=== PATIENT | female | born 1945 | race Caucasian/White ===

== ENCOUNTER → 2019-02-25 | Outpatient (CLI) | payer OTHER, MEDICARE ==
--- NOTE | 2019-02-25 14:26 | KCIC ---
EXAM: Renal sonogram. HISTORY: Renal insufficiency. TECHNIQUE: Sonographic imaging of the kidneys and bladder was performed. COMPARISON: None. FINDINGS: The kidneys are normal in size. No solid or cystic renal lesion is seen. There is no hydronephrosis. The inferior vena cava is patent. The aorta is obscured due to bowel gas. The bladder is empty, limiting evaluation of the ureteral jets. IMPRESSION: Sonographically unremarkable kidneys. Electronically signed by: Chante Galeana MD (02/25/2019 2:23 PM) [facility]
== END | disposition home or self-care (01) ==
LOC: KCIC US 12:41
PROVIDERS: ATTEND Internal Medicine Nephrology
DX: N18.9 Chronic kidney disease, unspecified (principal)
CPT/HCPCS: 76770

== ENCOUNTER 2019-12-12 19:26 | Inpatient (IN) | payer MEDICARE, OTHER ==
[~2019-12-12] VITALS: Ht 165.1 cm; Wt 75.7 kg
[2019-12-12 19:56] LABS: BASO # 0.1 x10^3/uL (0.0-0.2); BASO % 1 % (0-3); EOS # 0.1 x10^3/uL (0.0-0.7); EOS % 1 % (0-3); HEMATOCRIT 35.9 % (36.0-47.0); HEMOGLOBIN 11.5 g/dL (12.0-15.5); LYMPH # 1.8 x10^3/uL (1.0-4.8); LYMPH % 17 % (24-48); MEAN CORPUSCULAR HEMOGLOBIN 22 pg (25-35); MEAN CORPUSCULAR HGB CONC 32 g/dL (31-37); MEAN CORPUSCULAR VOLUME 69 fL (79-100); MONO # 0.8 x10^3/uL (0.0-1.1); MONO % 8 % (0-9); NEUT # 7.9 x10^3/uL (1.8-7.7); NEUT % 74 % (31-73); PLATELET COUNT 266 x10^3/uL (140-400); RED BLOOD COUNT 5.18 x10^6/uL (3.50-5.40); RED CELL DISTRIBUTION WIDTH 15.8 % (11.5-14.5); WHITE BLOOD COUNT 10.7 x10^3/uL (4.0-11.0)
[2019-12-12 20:05] LABS: CALCIUM 8.4 mg/dL (8.5-10.1); CREATININE 1.3 mg/dL (0.6-1.0); GFR 40.3; POTASSIUM 4.5 mmol/L (3.5-5.1); PROTHROMBIN TIME PATIENT 12.3 SEC (11.7-14.0)
[2019-12-12 20:11] LABS: DIRECT BILIRUBIN 0.2 mg/dL (0.0-0.2); TOTAL BILIRUBIN 0.5 mg/dL (0.2-1.0); TOTAL PROTEIN 6.3 g/dL (6.4-8.2)
[2019-12-12 20:24] LABS: ANISOCYTOSIS SLIGHT; HYPOCHROMIA MOD; MICROCYTOSIS MOD; OVALOCYTES FEW; PLT ESTIMATE ADEQUATE (ADEQUATE); POIKILOCYTOSIS SLIGHT
--- NOTE | 2019-12-12 20:25 | PHYS DOC ---
Past Medical History Past Medical History: Anxiety, Depression, Hypothyroid, Other Additional Past Medical Histor: PLEURISY Past Surgical History: Coronary Bypass Surgery Additional Past Surgical Histo: THYROIDECTOMY, BILATERA HAND SURGERY, BACK SURGERY, TENS UNIT IN LOWER BACK Smoking Status: Current Every Day Smoker Alcohol Use: Rarely General Adult EDM: Chief Complaint: CHEST PAIN HPI: HPI: 74-year-old female presents emergency department with chest pain that started ar ound 1400. Its a sharp shooting pain that radiates to the right side. It goes into her shoulder. It is about 8 out of 10. She has a history of heart disease and reports having open heart surgery before. She denies nausea or diaphoresis. She denies abdominal pain or headache. She came in by EMS. Review of systems negative for nausea vomiting fevers chills. Positive for chest pain. Negative for abdominal pain. All other review of systems negative. ED course: 74-year-old female presenting with chest pain. EKG obtained and reviewed by myself shows sinus rhythm with a regular rate. ST segments congruent. Not suggestive of acute ischemia. Chest x-ray and blood work ordered. Work-up here is unremarkable. Given the patient's history will admit the patient for chest pain rule out and cardiology consultation. I spoke to Dr. Daily who accepts patient for admission. Heart Score: HEART Score for Chest Pain: HEART Score for Chest Pain Response (Comments) Value History Moderately Suspicious 1 ECG Nonspecific Repolarizatio 1 Age > 65 2 Risk Factors >3 Risk Factors or Hx CAD 2 Troponin < Normal Limit 0 Total 6 Risk Factors: Risk Factors: DM, Current or recent (<one month) smoker, HTN, HLP, family history of CAD, obesity. Risk Scores: Score 0 - 3: 2.5% MACE over next 6 weeks - Discharge Home Score 4 - 6: 20.3% MACE over next 6 weeks - Admit for Clinical Observation Score 7 - 10: 72.7% MACE over next 6 weeks - Early Invasive Strategies Allergies: Allergies: Allergies Coded Allergies Type Severity Reaction Last Updated Verified codeine Allergy Unknown 12/12/19 Yes Physical Exam: PE: Constitutional: Well developed, well nourished, no acute distress, non-toxic appearance. [] HENT: Normocephalic, atraumatic, bilateral external ears normal, oropharynx moist, no oral exudates, nose normal. [] Eyes: PERRLA, EOMI, conjunctiva normal, no discharge. [] Neck: Normal range of motion, no tenderness, supple, no stridor. [] Cardiovascular:Heart rate regular rhythm, no murmur [] Lungs & Thorax: Bilateral breath sounds clear to auscultation [] Abdomen: Bowel sounds normal, soft, no tenderness, no masses, no pulsatile masses. [] Skin: Warm, dry, no erythema, no rash. [] Back: No tenderness, no CVA tenderness. [] Extremities: No tenderness, no cyanosis, no clubbing, ROM intact, no edema. [] Neurologic: Alert and oriented X 3, normal motor function, normal sensory function, no focal deficits noted. [] Psychologic: Affect normal, judgement normal, mood normal. [] Current Patient Data: Labs: Laboratory Tests Test 12/12/19 19:48 White Blood Count 10.7 x10^3/uL (4.0-11.0) Red Blood Count 5.18 x10^6/uL (3.50-5.40) Hemoglobin 11.5 g/dL (12.0-15.5) L Hematocrit 35.9 % (36.0-47.0) L Mean Corpuscular Volume 69 fL (79-100) L Mean Corpuscular Hemoglobin 22 pg (25-35) L Mean Corpuscular Hemoglobin Concent 32 g/dL (31-37) Red Cell Distribution Width 15.8 % (11.5-14.5) H Platelet Count 266 x10^3/uL (140-400) Neutrophils (%) (Auto) 74 % (31-73) H Lymphocytes (%) (Auto) 17 % (24-48) L Monocytes (%) (Auto) 8 % (0-9) Eosinophils (%) (Auto) 1 % (0-3) Basophils (%) (Auto) 1 % (0-3) Neutrophils # (Auto) 7.9 x10^3/uL (1.8-7.7) H Lymphocytes # (Auto) 1.8 x10^3/uL (1.0-4.8) Monocytes # (Auto) 0.8 x10^3/uL (0.0-1.1) Eosinophils # (Auto) 0.1 x10^3/uL (0.0-0.7) Basophils # (Auto) 0.1 x10^3/uL (0.0-0.2) Platelet Estimate Pending Prothrombin Time 12.3 SEC (11.7-14.0) Prothrombin Time INR 1.0 (0.8-1.1) Activated Partial Thromboplast Time 27 SEC (24-38) Sodium Level 142 mmol/L (136-145) Potassium Level 4.5 mmol/L (3.5-5.1) Chloride Level 107 mmol/L (98-107) Carbon Dioxide Level 28 mmol/L (21-32) Anion Gap 7 (6-14) Blood Urea Nitrogen 9 mg/dL (7-20) Creatinine 1.3 mg/dL (0.6-1.0) H Estimated GFR (Cockcroft-Gault) 40.3 Glucose Level 115 mg/dL (70-99) H Calcium Level 8.4 mg/dL (8.5-10.1) L Total Bilirubin 0.5 mg/dL (0.2-1.0) Direct Bilirubin 0.2 mg/dL (0.0-0.2) Aspartate Amino Transferase (AST) 14 U/L (15-37) L Alanine Aminotransferase (ALT) 16 U/L (14-59) Alkaline Phosphatase 107 U/L (46-116) Troponin I Quantitative < 0.017 ng/mL (0.000-0.055) KD-Cww-Q-Type Natriuretic Peptide 2606 pg/mL (0-124) H Total Protein 6.3 g/dL (6.4-8.2) L Albumin 3.0 g/dL (3.4-5.0) L Lipase 61 U/L (73-393) L Laboratory Tests 12/12/19 19:48 Laboratory Tests 12/12/19 19:48 Vital Signs: Vital Signs Date Time Temp Pulse Resp B/P (MAP) Pulse Ox O2 Delivery O2 Flow Rate FiO2 12/12/19 19:27 98.5 76 24 136/62 (86) 99 Nasal Cannula 2.0 98.5 EKG: EKG: [] Radiology/Procedures: Radiology/Procedures: [] Course & Med Decision Making: Course & Med Decision Making Pertinent Labs and Imaging studies reviewed. (See chart for details) [] Dragon Disclaimer: Dragon Disclaimer: This electronic medical record was generated, in whole or in part, using a voice recognition dictation system. Departure Departure Impression: Primary Impression: Chest pain Referrals: UNKNOWN PCP NAME (PCP) Justicifation of Admission Dx: Justifications for Admission: Justification of Admission Dx: Yes Angina: Symp at Rest MAIDA MUSA MD Dec 12, 2019 20:25
--- NOTE | 2019-12-12 20:32 | RAD ---
CHEST AP ONLY Clinical History: Reason: chest pain / Spl. Instructions: / History: Technique: AP view of the chest was obtained at 12/12/2019 7:31 PM. Comparison: None. Findings: The cardiomediastinal silhouette is normal. The pulmonary vasculature is normal. The lungs and pleural margins are clear. There are median sternotomy wires. Impression: No evidence of an acute cardiopulmonary process. Electronically signed by: Yazan Maciel III, MD (12/12/2019 8:29 PM) [facility]
[2019-12-12] MEDS ORDERED: IV NORMAL SALINE 1000ML BAG 1,000 ML IV SCH (20:39)
[2019-12-12] MEDS ORDERED: MORPHINE SULFATE 2 MG/ML VIAL. ONE (21:09)
[2019-12-12] MEDS: MORPHINE SULFATE 2 MG/ML VIAL. IV PRN ×2 (21:12→22:32)
[2019-12-12] MEDS ORDERED: LEVO150T PO (21:36)
[2019-12-12] MEDS ORDERED: ESCI20TA2 PO (21:36)
[2019-12-12] MEDS ORDERED: PANT40TA6 PO (21:36)
[2019-12-12] MEDS ORDERED: TRAZ-118 PO (21:36)
[2019-12-12] MEDS ORDERED: GABA400C7 PO (21:36)
[2019-12-12] MEDS ORDERED: guaiFENesin ORAL 200 MG/10 ML LIQUID. PO PRN (21:45)
[2019-12-12] MEDS ORDERED: MAG HYDROX/ALUMINUM HYD/SIMETH 30 ML ORAL.SUSP PO PRN (21:45)
[2019-12-12] MEDS ORDERED: DOCUSATE SODIUM 100 MG CAPSULE. PO PRN (21:45)
[2019-12-12] MEDS ORDERED: ONDANSETRON PF 4 MG/2 ML VIAL. IV PRN (21:45)
[2019-12-12] MEDS ORDERED: ENOXAPARIN 30 MG/0.3 ML SYRINGE. SQ SCH (22:00)
[2019-12-12 22:25] VITALS: BP 128/63
[2019-12-12] MEDS: GABAPENTIN 400 MG CAPSULE. PO SCH (22:31)
[2019-12-12] MEDS: ACETAMINOPHEN 325 MG TABLET. PO PRN (22:31)
[2019-12-12] MEDS: traZODone 50 MG TABLET. PO SCH (22:31)
[2019-12-13] MEDS: MORPHINE SULFATE 2 MG/ML VIAL. IV PRN ×5 (02:20→16:18)
[2019-12-13 03:47] VITALS: BP 124/80
[2019-12-13] MEDS: LEVOTHYROXINE 150 MCG TABLET PO SCH (06:21)
[2019-12-13 07:10] VITALS: BP 122/60
[2019-12-13 07:14] LABS: BASO # 0.1 x10^3/uL (0.0-0.2); BASO % 1 % (0-3); EOS # 0.1 x10^3/uL (0.0-0.7); EOS % 1 % (0-3); HEMATOCRIT 35.5 % (36.0-47.0); HEMOGLOBIN 11.2 g/dL (12.0-15.5); LYMPH # 1.5 x10^3/uL (1.0-4.8); LYMPH % 15 % (24-48); MEAN CORPUSCULAR HEMOGLOBIN 22 pg (25-35); MEAN CORPUSCULAR HGB CONC 32 g/dL (31-37); MEAN CORPUSCULAR VOLUME 69 fL (79-100); MONO % 10 % (0-9); NEUT # 7.4 x10^3/uL (1.8-7.7); NEUT % 74 % (31-73); PLATELET COUNT 269 x10^3/uL (140-400); RED BLOOD COUNT 5.18 x10^6/uL (3.50-5.40); WHITE BLOOD COUNT 10.1 x10^3/uL (4.0-11.0)
[2019-12-13 07:45] LABS: CALCIUM 8.2 mg/dL (8.5-10.1); CREATININE 1.3 mg/dL (0.6-1.0); GFR 40.3; POTASSIUM 4.5 mmol/L (3.5-5.1)
[2019-12-13] MEDS: GABAPENTIN 400 MG CAPSULE. PO SCH ×3 (08:33→21:25)
[2019-12-13] MEDS: CITALOPRAM 20 MG TABLET. PO SCH (08:34)
[2019-12-13] MEDS: PANTOPRAZOLE 40 MG TABLET.DR. PO SCH (08:34)
[2019-12-13] MEDS: ACETAMINOPHEN 325 MG TABLET. PO PRN (08:38)
--- NOTE | 2019-12-13 08:49 | PDOC2 ---
GORAN DIALLO GUT CAR[employer]ER 12/13/19 0849: CARDIAC CONSULT DATE OF CONSULT Date of Consult DATE: 12/13/19 TIME: 08:35 REASON FOR CONSULT Reason for Consult: chest pain REFERRING PHYSICIAN Referring Physician: Cecil SOURCE Source: Chart review, Patient HISTORY OF PRESENT ILLNESS HISTORY OF PRESENT ILLNESS This is a pleasant 74 yo female admitted for complains of chest pain. Reports midchest sharp and radiated to right shoulder and upper lateral rib cage region. Denies any nausea, SOA or palpitations. No dizziness, no fever or chills and no recent exposure to covid. She sees cardiology with significant cardiac history. No recent falls but she did lifted some boxes from Monday to Monday and her pain started yesterday. Today after evaluating her she has limited ROM to her right shoulder and significant pain with abduction and both AROM and PROM PAST MEDICAL HISTORY Cardiovascular: CAD, Hyperlipidemia, Valve insufficiency, Other (HOCM, takotsubo CM; remote apical mural thrombus) Pulmonary: COPD CENTRAL NERVOUS SYSTEM: Other (No pertinent history) GI: GERD Heme/Onc: No pertinent hx Hepatobiliary: Cholelithiasis Psych: Anxiety Musculoskeletal: low back pain, Osteoarthritis Infectious disease: No pertinent hx ENT: Allergic Rhinitis, Other (cataract) Renal/: UTI Endocrine: Hypothyroidism Dermatology: No pertinent hx PAST SURGICAL HISTORY Past Surgical History: Cholecystectomy, Cataract Removal, Other (septal myomectomy with PFO closure and mitral valve repair 05/2012; LMD) FAMILY HISTORY Family History: Coronary Artery Disease (father) SOCIAL HISTORY Smoke: Quit (remotely) ALCOHOL: occassional Drugs: None Lives: with Family CURRENT MEDICATIONS CURRENT MEDICATIONS Current Medications Medications (Trade) Dose Ordered Sig/Sarabjit Route PRN Reason Start Time Stop Time Status Last Admin Dose Admin Sodium Chloride 1,000 ml @ 100 mls/hr Q10H IV 12/12/19 20:39 12/13/19 00:38 DC 12/12/19 22:32 Morphine Sulfate (Morphine Sulfate) 2 mg PRN Q2HR PRN IV PAIN 12/12/19 21:15 12/13/19 21:14 12/13/19 06:36 Acetaminophen (Tylenol) 650 mg PRN Q4HRS PRN PO TEMP OVER 100.4F OR MILD PAIN 12/12/19 21:45 12/12/19 22:31 Enoxaparin Sodium (Lovenox 30mg Syringe) 30 mg Q24H SQ 12/12/19 22:00 12/12/19 22:31 Gabapentin (Neurontin) 400 mg TID PO 12/12/19 21:45 12/12/19 22:31 Levothyroxine Sodium (Synthroid) 150 mcg DAILY06 PO 12/13/19 06:00 12/13/19 06:21 Trazodone HCl (Desyrel) 50 mg QHS PO 12/12/19 21:45 12/12/19 22:31 ALLERGIES ALLERGIES: Coded Allergies: codeine (Verified Allergy, Unknown, 12/12/19) ROS Review of System 14 point ROS evaluated with pertinent positives noted per HPI PHYSICAL EXAM General: Alert, Oriented X3, Cooperative, No acute distress HEENT: Atraumatic, Mucous membr. moist/pink Lungs: Clear to auscultation, Normal air movement Heart: Regular rate (SR), Normal S1, Normal S2, Other (3/6 systolic murmur to LLS border) Abdomen: Soft, No tenderness Extremities: No cyanosis, No edema Skin: No breakdown, No significant lesion Neuro: Normal speech, Sensation intact Psych/Mental Status: Mental status NL, Mood NL MUSCULOSKELETAL: Osteoarthritic changes both hands, Other (Limited ROM to right shoulder with pain) VITALS/I&O VITALS/I&O: Vital Signs Date Time Temp Pulse Resp B/P (MAP) Pulse Ox O2 Delivery O2 Flow Rate FiO2 12/13/19 07:10 98.8 78 18 122/60 (80) 94 Nasal Cannula 2.0 98.8 I & O 12/12/19 12/12/19 12/13/19 15:00 23:00 07:00 Intake Total 0 ml Balance 0 ml LABS Lab: Laboratory Tests Test 12/12/19 19:48 12/13/19 00:45 12/13/19 06:17 White Blood Count 10.7 x10^3/uL (4.0-11.0) 10.1 x10^3/uL (4.0-11.0) Red Blood Count 5.18 x10^6/uL (3.50-5.40) 5.18 x10^6/uL (3.50-5.40) Hemoglobin 11.5 g/dL (12.0-15.5) L 11.2 g/dL (12.0-15.5) L Hematocrit 35.9 % (36.0-47.0) L 35.5 % (36.0-47.0) L Mean Corpuscular Volume 69 fL (79-100) L 69 fL (79-100) L Mean Corpuscular Hemoglobin 22 pg (25-35) L 22 pg (25-35) L Mean Corpuscular Hemoglobin Concent 32 g/dL (31-37) 32 g/dL (31-37) Red Cell Distribution Width 15.8 % (11.5-14.5) H 16.0 % (11.5-14.5) H Platelet Count 266 x10^3/uL (140-400) 269 x10^3/uL (140-400) Neutrophils (%) (Auto) 74 % (31-73) H 74 % (31-73) H Lymphocytes (%) (Auto) 17 % (24-48) L 15 % (24-48) L Monocytes (%) (Auto) 8 % (0-9) 10 % (0-9) H Eosinophils (%) (Auto) 1 % (0-3) 1 % (0-3) Basophils (%) (Auto) 1 % (0-3) 1 % (0-3) Neutrophils # (Auto) 7.9 x10^3/uL (1.8-7.7) H 7.4 x10^3/uL (1.8-7.7) Lymphocytes # (Auto) 1.8 x10^3/uL (1.0-4.8) 1.5 x10^3/uL (1.0-4.8) Monocytes # (Auto) 0.8 x10^3/uL (0.0-1.1) 1.0 x10^3/uL (0.0-1.1) Eosinophils # (Auto) 0.1 x10^3/uL (0.0-0.7) 0.1 x10^3/uL (0.0-0.7) Basophils # (Auto) 0.1 x10^3/uL (0.0-0.2) 0.1 x10^3/uL (0.0-0.2) Platelet Estimate Adequate (ADEQUATE) Hypochromasia Mod Poikilocytosis Slight Anisocytosis Slight Microcytosis Mod Ovalocytes Few Prothrombin Time 12.3 SEC (11.7-14.0) Prothrombin Time INR 1.0 (0.8-1.1) Activated Partial Thromboplast Time 27 SEC (24-38) Sodium Level 142 mmol/L (136-145) 144 mmol/L (136-145) Potassium Level 4.5 mmol/L (3.5-5.1) 4.5 mmol/L (3.5-5.1) Chloride Level 107 mmol/L (98-107) 109 mmol/L (98-107) H Carbon Dioxide Level 28 mmol/L (21-32) 28 mmol/L (21-32) Anion Gap 7 (6-14) 7 (6-14) Blood Urea Nitrogen 9 mg/dL (7-20) 11 mg/dL (7-20) Creatinine 1.3 mg/dL (0.6-1.0) H 1.3 mg/dL (0.6-1.0) H Estimated GFR (Cockcroft-Gault) 40.3 40.3 Glucose Level 115 mg/dL (70-99) H 110 mg/dL (70-99) H Calcium Level 8.4 mg/dL (8.5-10.1) L 8.2 mg/dL (8.5-10.1) L Iron Level 25 ug/dL (50-170) L Total Iron Binding Capacity 251 ug/dL (250-450) Iron Saturation 10 % (15-34) L Total Bilirubin 0.5 mg/dL (0.2-1.0) Direct Bilirubin 0.2 mg/dL (0.0-0.2) Aspartate Amino Transferase (AST) 14 U/L (15-37) L Alanine Aminotransferase (ALT) 16 U/L (14-59) Alkaline Phosphatase 107 U/L (46-116) Troponin I Quantitative < 0.017 ng/mL (0.000-0.055) < 0.017 ng/mL (0.000-0.055) < 0.017 ng/mL (0.000-0.055) SM-May-I-Type Natriuretic Peptide 2606 pg/mL (0-124) H Total Protein 6.3 g/dL (6.4-8.2) L Albumin 3.0 g/dL (3.4-5.0) L Lipase 61 U/L (73-393) L Laboratory Tests 12/12/19 19:48 12/13/19 06:17 Laboratory Tests 12/12/19 19:48 12/13/19 06:17 ASSESSMENT/PLAN ASSESSMENT/PLAN 1. Atypical Chest pain: doubt ACS, Suspect MSK suspicious for RTC tear 2. Hx of HOCM and PFO: S/P open septal myomectomy, MV repair and PFO closure in 05/2012 3. HLP 4. COPD with chronic cough 5. ?CKD2 6. PSVT: do not suspect this is the cause of her chest pain 7. Hypothyroidism 8. Nonobstructive CAD; per hx a remotely, no stents nor bypass Recommendations 1. Continue with home zetia, would benefit from statin instead but will defer this to cardiology. 2. [facility] recommended and will defer this to [facility], communicated this with pt and spouse 3. 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 Recommend MRI and ortho referral. 4. Will obtain TTE and will also check TSH as she is on thyroid replacement therapy. GEOVANNA WAKEFIELD MD 12/13/19 1504: CARDIAC CONSULT ASSESSMENT/PLAN ASSESSMENT/PLAN Patient seen and examined. Agree with GENERAL PARTNER's assessment and plan. Chest pain with atypical features and most probably musculoskeletal. HOCM/PFO s/p septal myectomy, MV repair and PFO closure, clinically stable PSVT presently sinus rhythm 2D echo showed normal LV systolic function and trace mitral regurgitation Ischemic work-up could be considered as an outpatient Thank you for your consultation GORAN DIALLO APRN Dec 13, 2019 08:49 GEOVANNA WAKEFIELD MD Dec 13, 2019 15:04
[2019-12-13 09:15] LABS: CHOLESTEROL/HDL RATIO 2.9
--- NOTE | 2019-12-13 09:24 | PDOC1 ---
History and Physical Date of Admission Date of Admission DATE: 12/13/19 TIME: 09:24 Identification/Chief Complaint Chief Complaint SEEN IN ER , 74-year-old female presents emergency department with chest pain that started around 1400. 12/11 ///sharp shooting pain that radiates to the right side.// into her shoulder. It is about 8 out of 10. history of heart disease and reports having open heart surgery before. She denies nausea or diaphoresis. She denies abdominal pain or headache. She came in by EMS. Review of systems negative for nausea vomiting fevers chills. Positive for chest pain. Negative for abdominal pain. All other review of systems negative. CMP NEG X 2 Past Medical History Cardiovascular: CAD, Hyperlipidemia, Valve insufficiency, Other (HOCM, takot subo CM; remote apical mural thrombus) Pulmonary: COPD Psych: Anxiety Musculoskeletal: Osteoarthritis Past Surgical History Past Surgical History: Other (septal myomectomy with PFO closure and mitral valve repair 05/2012) Family History Family History: High Cholestrol, Hypertension Social History Smoke: <1 pack per day ALCOHOL: none Drugs: None Current Problem List Problem List Problems Medical Problems: (1) Chest pain Status: Acute Current Medications Current Medications Current Medications Sodium Chloride 1,000 ml @ 100 mls/hr Q10H IV Last administered on 12/12/19at 22:32; Start 12/12/19 at 20:39; Stop 12/13/19 at 00:38; Status DC Morphine Sulfate (Morphine Sulfate) 2 mg PRN Q2HR PRN IV PAIN Last administered on 12/13/19at 08:37; Start 12/12/19 at 21:15; Stop 12/13/19 at 21:14 Morphine Sulfate (Morphine Sulfate) 2 mg STK-MED ONCE .ROUTE ; Start 12/12/19 at 21:09; Stop 12/12/19 at 21:10; Status DC Ondansetron HCl (Zofran) 4 mg PRN Q4HRS PRN IV NAUSEA/VOMITING; Start 12/12/19 at 21:45 Acetaminophen (Tylenol) 650 mg PRN Q4HRS PRN PO TEMP OVER 100.4F OR MILD PAIN Last administered on 12/13/19at 08:38; Start 12/12/19 at 21:45 Al Hydroxide/Mg Hydroxide (Mylanta Plus Xs) 30 ml PRN DAILY PRN PO HEARTBURN / GAS; Start 12/12/19 at 21:45 Docusate Sodium (Colace) 100 mg PRN BID PRN PO HARD STOOLS; Start 12/12/19 at 21:45 Guaifenesin (Robitussin) 200 mg PRN Q4HRS PRN PO COUGH Last administered on 12/13/19at 08:39; Start 12/12/19 at 21:45 Enoxaparin Sodium (Lovenox 30mg Syringe) 30 mg Q24H SQ Last administered on 12/12/19at 22:31; Start 12/12/19 at 22:00 Gabapentin (Neurontin) 400 mg TID PO Last administered on 12/13/19at 08:33; Start 12/12/19 at 21:45 Levothyroxine Sodium (Synthroid) 150 mcg DAILY06 PO Last administered on 12/13/19at 06:21; Start 12/13/19 at 06:00 Pantoprazole Sodium (Protonix) 40 mg DAILYAC PO Last administered on 12/13/19at 08:34; Start 12/13/19 at 07:30 Trazodone HCl (Desyrel) 50 mg QHS PO Last administered on 12/12/19at 22:31; Start 12/12/19 at 21:45 Citalopram Hydrobromide (CeleXA) 40 mg DAILY PO Last administered on 12/13/19at 08:34; Start 12/13/19 at 09:00 Active Scripts Active Reported Synthroid (Levothyroxine Sodium) 150 Mcg Tablet 150 Mcg PO DAILY06 90 Days On empty stomach without food or other meds Escitalopram Oxalate 20 Mg Tablet 20 Mg PO DAILY 90 Days Trazodone Hcl 50 Mg Tablet 50 Mg PO QHS 90 Days Pantoprazole Sodium 40 Mg Tablet.dr 40 Mg PO DAILY 90 Days Allergies Allergies: Coded Allergies: codeine (Verified Allergy, Unknown, 12/12/19) ROS Review of System 14 PT ROS OTHERWISE NEG General: No: Chills, Night Sweats, Fatigue, Malaise, Appetite, Other PSYCHOLOGICAL ROS: No: Anxiety, Behavioral Disorder, Concentration difficultie, Decreased libido, Depression, Disorientation, Hallucinations, Hostility, Irritablity, Memory difficulties, Mood Swings, Obsessive thoughts, Physical abuse, Sexual abuse, Sleep disturbances, Suicidal ideation, Other Eyes: No Blurry vision, No Decreased vision, No Double vision, No Dry eyes, No Excessive tearing, No Eye Pain, No Itchy Eyes, No Loss of vision, No Photophobia, No Scotomata, No Uses contacts, No Uses glasses, No Other HEENT: No: Heacaches, Visual Changes, Hearing change, Nasal congestion, Nasal discharge, Oral lesions, Sinus pain, Sore Throat, Epistaxis, Sneezing, Snoring, Tinnitus, Vertigo, Vocal changes, Other Hematological and Lymphatic: No: Bleeding Problems, Blood Clots, Blood Transfusions, Brusing, Night Sweats, Pallor, Swollen Lymph Nodes, Other ENDOCRINE: No: Breast Changes, Galactorrhea, Hair Pattern Changes, Hot Flashes, Malaise/lethargy, Mood Swings, Palpitations, Polydipsia/polyuria, Skin Changes, Temperature Intolerance, Unexpected Weight Changes, Other Respiratory: YES: Cough; No: Hemoptysis, Orthopnea, Pleuritic Pain, Shortness of breath, SOB with excertion, Sputum Changes, Stridor, Tachypnea, Wheezing, Other Cardiovascular: yes Chest Pain; No Palpitations, No Orthopnea, No Paroxysmal Noc. Dyspnea, No Edema, No Lt Headedness, No Other Gastrointestinal: No Nausea, No Vomiting, No Abdominal Pain, No Diarrhea, No Constipation, No Melena, No Hematochezia, No Other Genitourinary: No Dysuria, No Frequency, No Incontinence, No Hematuria, No Retention, No Discharge, No Urgency, No Pain, No Flank Pain, No Other, No , No , No , No , No , No , No Musculoskeletal: Yes Joint Pain, Yes Joint Stiffness; No Gait Disturbance, No Joint Swelling, No Muscle Pain, No Muscular Weakness, No Pain In:, No Swelling In:, No Other Neurological: No Behavorial Changes, No Bowel/Bladder ControlChng, No Confu yodit, No Dizziness, No Gait Disturbance, No Headaches, No Impaired Coord/balance, No Memory Loss, No Numbness/Tingling, No Seizures, No Speech Problems, No Tremors, No Visual Changes, No Weakness, No Other Skin: No Dry Skin, No Eczema, No Hair Changes, No Lumps, No Mole Changes, No Mottling, No Nail Changes, No Pruritus, No Rash, No Skin Lesion Changes, No Oth er, No Acne Physical Exam Physical Exam Constitutional: Well developed, well nourished, no acute distress, non-toxic appearance. [] HENT: Normocephalic, atraumatic, bilateral external ears normal, oropharynx moist, no oral exudates, nose normal. [] Eyes: PERRLA, EOMI, conjunctiva normal, no discharge. [] Neck: Normal range of motion, no tenderness, supple, no stridor. [] Cardiovascular:Heart rate regular rhythm, no murmur [] Lungs & Thorax: Bilateral breath sounds clear to auscultation [] Abdomen: Bowel sounds normal, soft, no tenderness, no masses, no pulsatile masses. [] Skin: Warm, dry, no erythema, no rash. [] Back: No tenderness, no CVA tenderness. [] Extremities: No tenderness, no cyanosis, no clubbing, ROM intact, no edema. [] Neurologic: Alert and oriented X 3, normal motor function, normal sensory function, no focal deficits noted. [] Psychologic: Affect normal, judgment normal, mood normal. [] General: Alert, Oriented X3, Cooperative HEENT: EOMI, Mucous membr. moist/pink Lungs: Clear to auscultation, Normal air movement Heart: no gallops Breasts: Not examined Abdomen: Normal bowel sounds, Soft Rectal Exam: not examined Extremities: No cyanosis, No edema Neuro: Normal speech, Cranial nerves 3-12 NL Psych/Mental Status: Mental status NL, Mood NL Vitals Vitals Vital Signs Date Time Temp Pulse Resp B/P (MAP) Pulse Ox O2 Delivery O2 Flow Rate FiO2 12/13/19 07:10 98.8 78 18 122/60 (80) 94 Nasal Cannula 2.0 98.8 Labs Labs Laboratory Tests Test 12/12/19 19:48 12/13/19 00:45 12/13/19 06:17 White Blood Count 10.7 x10^3/uL (4.0-11.0) 10.1 x10^3/uL (4.0-11.0) Red Blood Count 5.18 x10^6/uL (3.50-5.40) 5.18 x10^6/uL (3.50-5.40) Hemoglobin 11.5 g/dL (12.0-15.5) 11.2 g/dL (12.0-15.5) Hematocrit 35.9 % (36.0-47.0) 35.5 % (36.0-47.0) Mean Corpuscular Volume 69 fL (79-100) 69 fL (79-100) Mean Corpuscular Hemoglobin 22 pg (25-35) 22 pg (25-35) Mean Corpuscular Hemoglobin Concent 32 g/dL (31-37) 32 g/dL (31-37) Red Cell Distribution Width 15.8 % (11.5-14.5) 16.0 % (11.5-14.5) Platelet Count 266 x10^3/uL (140-400) 269 x10^3/uL (140-400) Neutrophils (%) (Auto) 74 % (31-73) 74 % (31-73) Lymphocytes (%) (Auto) 17 % (24-48) 15 % (24-48) Monocytes (%) (Auto) 8 % (0-9) 10 % (0-9) Eosinophils (%) (Auto) 1 % (0-3) 1 % (0-3) Basophils (%) (Auto) 1 % (0-3) 1 % (0-3) Neutrophils # (Auto) 7.9 x10^3/uL (1.8-7.7) 7.4 x10^3/uL (1.8-7.7) Lymphocytes # (Auto) 1.8 x10^3/uL (1.0-4.8) 1.5 x10^3/uL (1.0-4.8) Monocytes # (Auto) 0.8 x10^3/uL (0.0-1.1) 1.0 x10^3/uL (0.0-1.1) Eosinophils # (Auto) 0.1 x10^3/uL (0.0-0.7) 0.1 x10^3/uL (0.0-0.7) Basophils # (Auto) 0.1 x10^3/uL (0.0-0.2) 0.1 x10^3/uL (0.0-0.2) Platelet Estimate Adequate (ADEQUATE) Hypochromasia Mod Poikilocytosis Slight Anisocytosis Slight Microcytosis Mod Ovalocytes Few Prothrombin Time 12.3 SEC (11.7-14.0) Prothromb Time International Ratio 1.0 (0.8-1.1) Activated Partial Thromboplast Time 27 SEC (24-38) Sodium Level 142 mmol/L (136-145) 144 mmol/L (136-145) Potassium Level 4.5 mmol/L (3.5-5.1) 4.5 mmol/L (3.5-5.1) Chloride Level 107 mmol/L (98-107) 109 mmol/L (98-107) Carbon Dioxide Level 28 mmol/L (21-32) 28 mmol/L (21-32) Anion Gap 7 (6-14) 7 (6-14) Blood Urea Nitrogen 9 mg/dL (7-20) 11 mg/dL (7-20) Creatinine 1.3 mg/dL (0.6-1.0) 1.3 mg/dL (0.6-1.0) Estimated GFR (Cockcroft-Gault) 40.3 40.3 Glucose Level 115 mg/dL (70-99) 110 mg/dL (70-99) Calcium Level 8.4 mg/dL (8.5-10.1) 8.2 mg/dL (8.5-10.1) Iron Level 25 ug/dL (50-170) Total Iron Binding Capacity 251 ug/dL (250-450) Iron Saturation 10 % (15-34) Total Bilirubin 0.5 mg/dL (0.2-1.0) Direct Bilirubin 0.2 mg/dL (0.0-0.2) Aspartate Amino Transf (AST/SGOT) 14 U/L (15-37) Alanine Aminotransferase (ALT/SGPT) 16 U/L (14-59) Alkaline Phosphatase 107 U/L (46-116) Troponin I Quantitative < 0.017 ng/mL (0.000-0.055) < 0.017 ng/mL (0.000-0.055) < 0.017 ng/mL (0.000-0.055) KL-Dqr-P-Type Natriuretic Peptide 2606 pg/mL (0-124) Total Protein 6.3 g/dL (6.4-8.2) Albumin 3.0 g/dL (3.4-5.0) Lipase 61 U/L (73-393) Triglycerides Level 82 mg/dL (0-150) Cholesterol Level 197 mg/dL (0-200) LDL Cholesterol, Calculated 112 mg/dL (0-100) VLDL Cholesterol, Calculated 16 mg/dL (0-40) Non-HDL Cholesterol Calculated 128 mg/dL (0-129) HDL Cholesterol 69 mg/dL (40-60) Cholesterol/HDL Ratio 2.9 Laboratory Tests Test 12/12/19 19:48 12/13/19 00:45 12/13/19 06:17 White Blood Count 10.7 x10^3/uL (4.0-11.0) 10.1 x10^3/uL (4.0-11.0) Red Blood Count 5.18 x10^6/uL (3.50-5.40) 5.18 x10^6/uL (3.50-5.40) Hemoglobin 11.5 g/dL (12.0-15.5) 11.2 g/dL (12.0-15.5) Hematocrit 35.9 % (36.0-47.0) 35.5 % (36.0-47.0) Mean Corpuscular Volume 69 fL (79-100) 69 fL (79-100) Mean Corpuscular Hemoglobin 22 pg (25-35) 22 pg (25-35) Mean Corpuscular Hemoglobin Concent 32 g/dL (31-37) 32 g/dL (31-37) Red Cell Distribution Width 15.8 % (11.5-14.5) 16.0 % (11.5-14.5) Platelet Count 266 x10^3/uL (140-400) 269 x10^3/uL (140-400) Neutrophils (%) (Auto) 74 % (31-73) 74 % (31-73) Lymphocytes (%) (Auto) 17 % (24-48) 15 % (24-48) Monocytes (%) (Auto) 8 % (0-9) 10 % (0-9) Eosinophils (%) (Auto) 1 % (0-3) 1 % (0-3) Basophils (%) (Auto) 1 % (0-3) 1 % (0-3) Neutrophils # (Auto) 7.9 x10^3/uL (1.8-7.7) 7.4 x10^3/uL (1.8-7.7) Lymphocytes # (Auto) 1.8 x10^3/uL (1.0-4.8) 1.5 x10^3/uL (1.0-4.8) Monocytes # (Auto) 0.8 x10^3/uL (0.0-1.1) 1.0 x10^3/uL (0.0-1.1) Eosinophils # (Auto) 0.1 x10^3/uL (0.0-0.7) 0.1 x10^3/uL (0.0-0.7) Basophils # (Auto) 0.1 x10^3/uL (0.0-0.2) 0.1 x10^3/uL (0.0-0.2) Platelet Estimate Adequate (ADEQUATE) Hypochromasia Mod Poikilocytosis Slight Anisocytosis Slight Microcytosis Mod Ovalocytes Few Prothrombin Time 12.3 SEC (11.7-14.0) Prothromb Time International Ratio 1.0 (0.8-1.1) Activated Partial Thromboplast Time 27 SEC (24-38) Sodium Level 142 mmol/L (136-145) 144 mmol/L (136-145) Potassium Level 4.5 mmol/L (3.5-5.1) 4.5 mmol/L (3.5-5.1) Chloride Level 107 mmol/L (98-107) 109 mmol/L (98-107) Carbon Dioxide Level 28 mmol/L (21-32) 28 mmol/L (21-32) Anion Gap 7 (6-14) 7 (6-14) Blood Urea Nitrogen 9 mg/dL (7-20) 11 mg/dL (7-20) Creatinine 1.3 mg/dL (0.6-1.0) 1.3 mg/dL (0.6-1.0) Estimated GFR (Cockcroft-Gault) 40.3 40.3 Glucose Level 115 mg/dL (70-99) 110 mg/dL (70-99) Calcium Level 8.4 mg/dL (8.5-10.1) 8.2 mg/dL (8.5-10.1) Iron Level 25 ug/dL (50-170) Total Iron Binding Capacity 251 ug/dL (250-450) Iron Saturation 10 % (15-34) Total Bilirubin 0.5 mg/dL (0.2-1.0) Direct Bilirubin 0.2 mg/dL (0.0-0.2) Aspartate Amino Transf (AST/SGOT) 14 U/L (15-37) Alanine Aminotransferase (ALT/SGPT) 16 U/L (14-59) Alkaline Phosphatase 107 U/L (46-116) Troponin I Quantitative < 0.017 ng/mL (0.000-0.055) < 0.017 ng/mL (0.000-0.055) < 0.017 ng/mL (0.000-0.055) MK-Jac-R-Type Natriuretic Peptide 2606 pg/mL (0-124) Total Protein 6.3 g/dL (6.4-8.2) Albumin 3.0 g/dL (3.4-5.0) Lipase 61 U/L (73-393) Triglycerides Level 82 mg/dL (0-150) Cholesterol Level 197 mg/dL (0-200) LDL Cholesterol, Calculated 112 mg/dL (0-100) VLDL Cholesterol, Calculated 16 mg/dL (0-40) Non-HDL Cholesterol Calculated 128 mg/dL (0-129) HDL Cholesterol 69 mg/dL (40-60) Cholesterol/HDL Ratio 2.9 Images Images ricuspid Valve TR P. Velocity 283cm/s RAP ESTIMATE 3mmHg TR Peak Gr. 39mmHg RVSP 42mmHg Pulmonary Vein S1 Velocity 66.5cm/s D2 Velocity 60.6cm/s PVa duration 124msec LEFT VENTRICLE The left ventricle is normal size. There is normal left ventricular wall thickness. The left ventricular systolic function is normal and the ejection fraction is within normal range. The Ejection Fraction is 55-60%. There is normal LV segmental wall motion. The left ventricular diastolic function and fi lling is normal for age. RIGHT VENTRICLE The right ventricle is normal size. There is normal right ventricular wall thickness. The right ventricular systolic function is normal. ATRIA The left atrium is borderline dilated. The right atrium size is normal. The interatrial septum is intact with no evidence for an atrial septal defect or patent foramen ovale as noted on 2-D or Doppler imaging. AORTIC VALVE The aortic valve is thickened but opens well. Doppler and Color Flow revealed trace to mild aortic regurgitation. There is no significant aortic valvular stenosis. Calculated aortic valve area is 2.19 cm2 with maximum pressure gradient of 10 mmHg and mean pressure gradient of 5 mmHg. MITRAL VALVE Mitral annular calcification is mild. There is no evidence of mitral valve prolapse. There is no mitral valve stenosis. Doppler and Color-flow revealed trace mitral regurgitation. TRICUSPID VALVE The tricuspid valve is normal in structure and function. Doppler and Color Flow revealed mild to moderate tricuspid regurgitation with an estimated PAP of 42 mmHg. There is no tricuspid valve stenosis. PULMONIC VALVE The pulmonic valve is not well visualized. Doppler and Color Flow revealed trace pulmonic valvular regurgitation. GREAT VESSELS The aortic root is normal in size. The IVC is normal in size and collapses >50% with inspiration. PERICARDIAL EFFUSION There is no evidence of significant pericardial effusion. Critical Notification Critical Value: No <Conclusion> The left ventricle is normal size. The left ventricular systolic function is normal and the ejection fraction is within normal range. The Ejection Fraction is 55-60%. Doppler and Color Flow revealed trace to mild aortic regurgitation. There is no significant aortic valvular stenosis. Calculated aortic valve area is 2.19 cm2 with maximum pressure gradient of 10 mmHg and mean pressure gradient of 5 mmHg. Doppler and Color-flow revealed trace mitral regurgitation. Doppler and Color Flow revealed mild to moderate tricuspid regurgitation with an estimated PAP of 42 mmHg. Signed by : Aguilar Rdz MD Electronically Approved : 12/13/2019 11:47:33 DICTATED and SIGNED BY: AGUILAR RDZ MD DATE: 12/13/19 1128 VTE Prophylaxis Ordered VTE Prophylaxis Devices: Yes VTE Pharmacological Prophylaxi: Yes Assessment/Plan Assessment/Plan impression chest pain HOCM and PFO: S/P open septal myomectomy, MV repair and PFO closure in 05/2012 mild to moderate tricuspid regurgitation with an estimated PAP of 42 mmHg. Hyperlipidemia COPD with chronic cough right shoulder pain tobacco abuse disorder admit cvc bed x-ray r shoulder, may need MRI Cardiology consult serial troponin i x ray right shoulder consult DR ELIZABETH Haley/Ozzie RN Justicifation of Admission Dx: Justifications for Admission: Justification of Admission Dx: Yes Angina: Symp at Rest EVELYNE HERNÁNDEZ MD Dec 13, 2019 09:24
[2019-12-13 10:50] VITALS: BP 107/57
--- NOTE | 2019-12-13 11:48 | CARD ---
MR#: [id number] Date of Study: 12/13/2019 Ordering Physician: GORAN DIALLO, Referring Physician: GORAN DIALLO, Tech: Corie Boyce APPROVED REPORT EXAM: Two-dimensional and M-mode echocardiogram with Doppler and color Doppler. Other Information Quality : AverageHR: 75bpm INDICATION Chest Pain Surgery/Intervention CABG: RISK FACTORS Smoking 2D DIMENSIONS RVDd3.2 (2.9-3.5cm)Left Atrium(2D)3.8 (1.6-4.0cm) IVSd1.0 (0.7-1.1cm)Aortic Root(2D)3.0 (2.0-3.7cm) LVDd5.4 (3.9-5.9cm)LVOT Diameter2.1 (1.8-2.4cm) PWd1.0 (0.7-1.1cm)LVDs2.8 (2.5-4.0cm) FS (%) 48.5 %SV111.1 ml Aortic Valve AoV Peak Nakul.144.4cm/sAoV VTI26.3cm AO Peak GR.8.3mmHgLVOT Peak Nakul.130.8cm/s LVOT VTI 22.41cmAO Mean GR.4mmHg SOUTH (VMAX)2.52qe0CPJ (VTI)2.86cm2 AI P 1/2 [id number] Mitral Valve MV E Ibrnfmek777.2cm/sMV E Peak Gr.113mmHg MV DECEL [id number] A Ybbyhawd19.9cm/s MV E Mean Gr.2mmHgMV [id number] E/A Ratio1.2MVA (PHT)3.24cm2 TDI E/Lateral E'11.4E/Medial E'15.0 Pulmonary Valve PV Peak Umxfhohx343.2cm/sPV Peak Grad.4mmHg Tricuspid Valve TR P. Ijkpoxxu722km/sRAP QKHRZDCZ4hbVe TR Peak Gr.32cwHdVCXT32myLa Pulmonary Vein S1 Wdymdmtz97.5cm/sD2 Avcvlvmo00.6cm/s PVa [id number] LEFT VENTRICLE The left ventricle is normal size. There is normal left ventricular wall thickness. The left ventricu lar systolic function is normal and the ejection fraction is within normal range. The Ejection Fracti on is 55-60%. There is normal LV segmental wall motion. The left ventricular diastolic function and f illing is normal for age. RIGHT VENTRICLE The right ventricle is normal size. There is normal right ventricular wall thickness. The right ventr icular systolic function is normal. ATRIA The left atrium is borderline dilated. The right atrium size is normal. The interatrial septum is int act with no evidence for an atrial septal defect or patent foramen ovale as noted on 2-D or Doppler i maging. AORTIC VALVE The aortic valve is thickened but opens well. Doppler and Color Flow revealed trace to mild aortic re gurgitation. There is no significant aortic valvular stenosis. Calculated aortic valve area is 2.19 c m2 with maximum pressure gradient of 10 mmHg and mean pressure gradient of 5 mmHg. MITRAL VALVE Mitral annular calcification is mild. There is no evidence of mitral valve prolapse. There is no mitr al valve stenosis. Doppler and Color-flow revealed trace mitral regurgitation. TRICUSPID VALVE The tricuspid valve is normal in structure and function. Doppler and Color Flow revealed mild to mode rate tricuspid regurgitation with an estimated PAP of 42 mmHg. There is no tricuspid valve stenosis. PULMONIC VALVE The pulmonic valve is not well visualized. Doppler and Color Flow revealed trace pulmonic valvular re gurgitation. GREAT VESSELS The aortic root is normal in size. The IVC is normal in size and collapses >50% with inspiration. PERICARDIAL EFFUSION There is no evidence of significant pericardial effusion. Critical Notification Critical Value: No <Conclusion> The left ventricle is normal size. The left ventricular systolic function is normal and the ejection fraction is within normal range. The Ejection Fraction is 55-60%. Doppler and Color Flow revealed trace to mild aortic regurgitation. There is no significant aortic valvular stenosis. Calculated aortic valve area is 2.19 cm2 with maximum pressure gradient of 10 mmHg and mean pressure gradient of 5 mmHg. Doppler and Color-flow revealed trace mitral regurgitation. Doppler and Color Flow revealed mild to moderate tricuspid regurgitation with an estimated PAP of 42 mmHg. Signed by : Alexis Rdz MD Electronically Approved : 12/13/2019 11:47:33
[2019-12-13] MEDS ORDERED: HYDROcodone/APAP 5/325MG 1 TAB TABLET PO PRN (12:15)
[2019-12-13] MEDS ORDERED: ALBUTEROL SULFATE 2.5 MG/3 ML NEBU. NEB PRN (12:30)
[2019-12-13] MEDS ORDERED: guaiFENesin ORAL 200 MG/10 ML LIQUID. PO PRN (12:30)
[2019-12-13] MEDS ORDERED: NAPROXEN 250 MG TABLET PO PRN (12:30)
[2019-12-13] MEDS ORDERED: ONDANSETRON PF 4 MG/2 ML VIAL. IV PRN (12:30)
[2019-12-13] MEDS ORDERED: 0.9 % SODIUM CHLORIDE 10 ML DISP.SYRIN. IV PRN (12:30)
[2019-12-13] MEDS ORDERED: LORazepam 0.5 MG TABLET PO PRN (12:30)
[2019-12-13] MEDS ORDERED: ACETAMINOPHEN 325 MG TABLET. PO PRN (12:30)
[2019-12-13] MEDS ORDERED: MAG HYDROX/ALUMINUM HYD/SIMETH 30 ML ORAL.SUSP PO PRN (12:30)
[2019-12-13] MEDS ORDERED: DOCUSATE SODIUM 100 MG CAPSULE. PO PRN (12:30)
--- NOTE | 2019-12-13 13:37 | NUR ---
SS following for discharge planning. SS reviewed pt chart and discussed with pt RN. Pt is from home with spouse and is currently requiring oxygen. SS will continue to follow for discharge planning.
[2019-12-13 15:00] VITALS: BP 124/59
--- NOTE | 2019-12-13 15:13 | RAD ---
SHOULDER 2+V RIGHT DATE: 12/13/2019 12:05 PM INDICATION: Reason: R shoulder pain / Spl. Instructions: / History: COMPARISON: None. FINDINGS: Bones: There is no evidence of acute fracture or dislocation. Joints: Moderate acromioclavicular joint degenerative changes. Glenohumeral joint is congruent. The acromiohumeral distance is not narrowed. Miscellaneous: No abnormal soft tissue calcifications in the shoulder. IMPRESSION: No acute osseous abnormality. Moderate AC joint degenerative changes. Electronically signed by: Fletcher Lombardi MD (12/13/2019 3:10 PM) [id number]
[2019-12-13 19:06] VITALS: BP 113/53
[2019-12-13] MEDS: HYDROcodone/APAP 5/325MG 1 TAB TABLET PO PRN (19:45)
[2019-12-13] MEDS ORDERED: ENOXAPARIN 40 MG/0.4 ML SYRINGE. SQ SCH (21:00)
[2019-12-13] MEDS: traZODone 50 MG TABLET. PO SCH (21:25)
[2019-12-13] MEDS: ATORVASTATIN CALCIUM 10 MG TABLET. PO SCH (21:26)
--- NOTE | 2019-12-13 22:14 | CONS ---
DATE OF CONSULTATION: 12/13/2019 CHIEF COMPLAINT: Right shoulder pain. REQUESTING PHYSICIAN: Dr. Burgos. HISTORY OF PRESENT ILLNESS: The patient is a 74-year-old female who was noted to be moving some boxes at home doing some heavier lifting and had a fairly sudden onset of right-sided shoulder and chest pain and was admitted for a cardiology consultation and due to her shoulder pain requested orthopedic evaluation as well. She notes her pain primarily over the scapula medial border and surrounding musculature and notes that it is worse when she reaches across her body to the front. PAST MEDICAL HISTORY: Significant for anxiety, depression, hypothyroidism, and pleurisy. PAST SURGICAL HISTORY: Coronary artery bypass, bilateral hand surgery, and back surgeries including a nerve stimulator as well as thyroidectomy. FAMILY HISTORY: High blood pressure and hypercholesterolemia. SOCIAL HISTORY: She is a less than 1 pack per day smoker, rare alcohol use and denies drug use. She is accompanied by her . REVIEW OF SYSTEMS: Really denies any chest pain per se. It is more over the right shoulder blade area where she is having her pain. Denies any radiating pain, focal weakness, numbness or tingling and no constitutional symptoms. MEDICATIONS: List is reviewed. ALLERGIES: INCLUDE CODEINE. PHYSICAL EXAMINATION: EXTREMITIES: She has full range of motion of both shoulders. There is no apprehension or instability. Rotator cuff strength is intact. She is really mainly tender again over the posterior aspect of the shoulder parascapular area, particularly with reaching across her chest to the front. There is no tenderness over the acromioclavicular joint on palpation or compression. No winging or scapular instability noted. Although there is some mild spasm parascapular more than trapezial. Normal examination of the contralateral left shoulder, bilateral elbows and wrists with intact motor function, distal pulses, sensation, reflexes, skin in both upper extremities throughout. IMAGING: Shoulder x-rays show well-maintained glenohumeral and acromioclavicular joints. IMPRESSION: Left shoulder strain and parascapular spasm. TREATMENT PLAN: I went over with her that her rotator cuff strength to really test out excellent. She does not appear to have any deficit there and furthermore her pain really is more over the muscular area that corresponds to her muscles around her shoulder blade primarily. I would expect some spasm after strain in this area, which she can treat really nonoperatively with some stretching and physical therapy type of exercises. She asked when she can go home and I indicated that from an orthopedic standpoint, she would be nonoperatively treated; however, I am not sure of the ongoing workup plans from her hospitalist admitting physician and overall her other hospital course would be up to them. All her questions were answered. She appreciated the conversation and follow up with me can really be on an as needed basis only. CARA NJ MD DR: NEETU/nts JOB#: [id number] / [id number]
[2019-12-13 22:55] VITALS: BP 106/58
[2019-12-14 03:22] VITALS: BP 131/60
[2019-12-14] MEDS: HYDROcodone/APAP 5/325MG 1 TAB TABLET PO PRN ×2 (03:27→21:12)
[2019-12-14] MEDS: LEVOTHYROXINE 150 MCG TABLET PO SCH (06:04)
[2019-12-14 07:19] VITALS: BP 129/65
[2019-12-14] MEDS: GABAPENTIN 400 MG CAPSULE. PO SCH ×3 (08:28→21:11)
[2019-12-14] MEDS: PANTOPRAZOLE 40 MG TABLET.DR. PO SCH (08:28)
[2019-12-14] MEDS: CITALOPRAM 20 MG TABLET. PO SCH (08:29)
--- NOTE | 2019-12-14 09:41 | PDOC ---
PROGRESS NOTES History of Present Illness History of Present Illness VTE Prophylaxis Ordered VTE Prophylaxis Devices: Yes VTE Pharmacological Prophylaxi: Yes Assessment/Plan Assessment/Plan impression chest pain HOCM and PFO: S/P open septal myomectomy, MV repair and PFO closure in 05/2012 mild to moderate tricuspid regurgitation with an estimated PAP of 42 mmHg. Hyperlipidemia COPD with chronic cough right shoulder pain ON X RAY, 12/12 No acute osseous abnormality. Moderate AC joint degenerative changes. tobacco abuse disorder hypoxia on room air ? PE admit cvc bed x-ray r shoulder, may need MRI Cardiology consult serial troponin i x ray right shoulder V/Q SCAN STAT D-DIMER Ischemic work-up could be considered as an outpatient D/W DR [place] 12/12 D/W RN 38 min pt exam, chart review, > 50% of time spent with exam, chart review, pt care coordination Justicifation of Admission Dx: Justicifation of Admission Dx: Justifications for Admission: Justification of Admission Dx: Yes Angina: Symp at Rest Vitals Vitals Vital Signs Date Time Temp Pulse Resp B/P (MAP) Pulse Ox O2 Delivery O2 Flow Rate FiO2 12/14/19 08:00 Nasal Cannula 2.0 12/14/19 07:19 98.2 78 18 129/65 (86) 97 98.2 Physical Exam General: Alert, Oriented X3, Cooperative, No acute distress Heart: Regular rate (SR), Normal S1, Normal S2, Other (3/6 systolic murmur to LLS border) Abdomen: Normal bowel sounds, Soft Extremities: No cyanosis, No edema Skin: No breakdown, No significant lesion Labs LABS Exam: Bilateral lower extremity venous duplex study INDICATION: Leg swelling TECHNIQUE: Using a combination of real-time ultrasound imaging and color-flow and pulse Doppler imaging techniques along with graded compression and augmentation, duplex evaluation of the deep venous systems of bilateral lower extremity was performed. Multiple images were obtained. Findings: There is no sonographic evidence for deep venous thrombosis involving the visualized deep venous structures of the bilateral lower extremity. IMPRESSION: No acute DVT in the bilateral lower extremities. Electronically signed by: Johnny Nguyễn MD (12/14/2019 6:28 PM) [id number] DICTATED and SIGNED BY: JOHNNY NGUYỄN MD DATE: 12/14/19 182 Examination: Nuclear medicine perfusion scan. Clinical History: Chest pain . Technique: . 5.4 mCi of Tc 99m MAA was administered intravenously and spot views were obtained on the gamma camera for a Nuclear Medicine perfusion examination. Findings: No evidence of segmental perfusion defects identified however small nonsegmental perfusion defects identified in the bilateral lungs. IMPRESSION: Intermediate probability for pulmonary embolism. Consider ultrasound bilateral lower extremity venous duplex or CT angiogram if clinically feasible. Electronically signed by: Dell White MD (12/14/2019 2:44 PM) [id number] DICTATED and SIGNED BY: DELL WHITE MD DATE: 12/14/19 1449 Exam: CT of chest without contrast INDICATION: Chest pain, indeterminate VQ scan TECHNIQUE: Sequential axial images through the chest obtained without IV contrast. Sagittal and coronal reformatted images were reconstructed from the axial data and reviewed. Comparisons: VQ scan same day FINDINGS: Visualized portions of the thyroid are unremarkable. No enlarged mediastinal lymph nodes. Heart size is normal. No pericardial effusion. Thoracic aorta has a normal course and caliber. Pulmonary artery is not enlarged. Airways are patent. Strandy opacities at the left upper lobe series 2 image 17 through 21. 3 mm nodule in the right upper lobe image 17. 5 mm nodule left lower lobe series 2 image 32. No pleural effusion or thickening. Visualized upper abdomen is unremarkable. No suspicious osseous lesions or acute fractures. IMPRESSION: 1. Strandy opacities at the left upper lobe represent atelectasis or baby infectious or inflammatory in etiology. 2. Several pulmonary nodules, largest measuring 5 mm. In a low-risk patient no further follow-up imaging is recommended. In a high-risk patient optional one-year follow-up CT can BE performed. Exposure: One or more of the following in the visualized dose reduction techniques were utilized for this examination: 1. Automated exposure control 2. Adjustment of the MA and/or KV according to patient size 3. Use of iterative of reconstructive technique Electronically signed by: Johnny Nguyễn MD (12/14/2019 5:16 PM) [id number] DICTATED and SIGNED BY: JOHNNY NGUYỄN MD DATE: 12/14/19 1716 SHOULDER 2+V RIGHT DATE: 12/13/2019 12:05 PM INDICATION: Reason: R shoulder pain / Spl. Instructions: / History: COMPARISON: None. FINDINGS: Bones: There is no evidence of acute fracture or dislocation. Joints: Moderate acromioclavicular joint degenerative changes. Glenohumeral joint is congruent. The acromiohumeral distance is not narrowed. Miscellaneous: No abnormal soft tissue calcifications in the shoulder. IMPRESSION: No acute osseous abnormality. Moderate AC joint degenerative changes. Electronically signed by: Gaurav Candelaria MD (12/13/2019 3:10 PM) [id number] DICTATED and SIGNED BY: GAURAV CANDELARIA MD DATE: 12/13/19 151 Assessment and Plan Assessmemt and Plan Problems Medical Problems: (1) Chest pain Status: Acute Comment Review of Relevant I have reviewed the following items prasanna (where applicable) has been applied. Labs Laboratory Tests Test 12/12/19 19:48 12/13/19 00:45 12/13/19 06:17 White Blood Count 10.7 x10^3/uL (4.0-11.0) 10.1 x10^3/uL (4.0-11.0) Red Blood Count 5.18 x10^6/uL (3.50-5.40) 5.18 x10^6/uL (3.50-5.40) Hemoglobin 11.5 g/dL (12.0-15.5) 11.2 g/dL (12.0-15.5) Hematocrit 35.9 % (36.0-47.0) 35.5 % (36.0-47.0) Mean Corpuscular Volume 69 fL (79-100) 69 fL (79-100) Mean Corpuscular Hemoglobin 22 pg (25-35) 22 pg (25-35) Mean Corpuscular Hemoglobin Concent 32 g/dL (31-37) 32 g/dL (31-37) Red Cell Distribution Width 15.8 % (11.5-14.5) 16.0 % (11.5-14.5) Platelet Count 266 x10^3/uL (140-400) 269 x10^3/uL (140-400) Neutrophils (%) (Auto) 74 % (31-73) 74 % (31-73) Lymphocytes (%) (Auto) 17 % (24-48) 15 % (24-48) Monocytes (%) (Auto) 8 % (0-9) 10 % (0-9) Eosinophils (%) (Auto) 1 % (0-3) 1 % (0-3) Basophils (%) (Auto) 1 % (0-3) 1 % (0-3) Neutrophils # (Auto) 7.9 x10^3/uL (1.8-7.7) 7.4 x10^3/uL (1.8-7.7) Lymphocytes # (Auto) 1.8 x10^3/uL (1.0-4.8) 1.5 x10^3/uL (1.0-4.8) Monocytes # (Auto) 0.8 x10^3/uL (0.0-1.1) 1.0 x10^3/uL (0.0-1.1) Eosinophils # (Auto) 0.1 x10^3/uL (0.0-0.7) 0.1 x10^3/uL (0.0-0.7) Basophils # (Auto) 0.1 x10^3/uL (0.0-0.2) 0.1 x10^3/uL (0.0-0.2) Platelet Estimate Adequate (ADEQUATE) Hypochromasia Mod Poikilocytosis Slight Anisocytosis Slight Microcytosis Mod Ovalocytes Few Prothrombin Time 12.3 SEC (11.7-14.0) Prothromb Time International Ratio 1.0 (0.8-1.1) Activated Partial Thromboplast Time 27 SEC (24-38) Sodium Level 142 mmol/L (136-145) 144 mmol/L (136-145) Potassium Level 4.5 mmol/L (3.5-5.1) 4.5 mmol/L (3.5-5.1) Chloride Level 107 mmol/L (98-107) 109 mmol/L (98-107) Carbon Dioxide Level 28 mmol/L (21-32) 28 mmol/L (21-32) Anion Gap 7 (6-14) 7 (6-14) Blood Urea Nitrogen 9 mg/dL (7-20) 11 mg/dL (7-20) Creatinine 1.3 mg/dL (0.6-1.0) 1.3 mg/dL (0.6-1.0) Estimated GFR (Cockcroft-Gault) 40.3 40.3 Glucose Level 115 mg/dL (70-99) 110 mg/dL (70-99) Calcium Level 8.4 mg/dL (8.5-10.1) 8.2 mg/dL (8.5-10.1) Iron Level 25 ug/dL (50-170) Total Iron Binding Capacity 251 ug/dL (250-450) Iron Saturation 10 % (15-34) Total Bilirubin 0.5 mg/dL (0.2-1.0) Direct Bilirubin 0.2 mg/dL (0.0-0.2) Aspartate Amino Transf (AST/SGOT) 14 U/L (15-37) Alanine Aminotransferase (ALT/SGPT) 16 U/L (14-59) Alkaline Phosphatase 107 U/L (46-116) Troponin I Quantitative < 0.017 ng/mL (0.000-0.055) < 0.017 ng/mL (0.000-0.055) < 0.017 ng/mL (0.000-0.055) AK-Dtk-E-Type Natriuretic Peptide 2606 pg/mL (0-124) Total Protein 6.3 g/dL (6.4-8.2) Albumin 3.0 g/dL (3.4-5.0) Lipase 61 U/L (73-393) Triglycerides Level 82 mg/dL (0-150) Cholesterol Level 197 mg/dL (0-200) LDL Cholesterol, Calculated 112 mg/dL (0-100) VLDL Cholesterol, Calculated 16 mg/dL (0-40) Non-HDL Cholesterol Calculated 128 mg/dL (0-129) HDL Cholesterol 69 mg/dL (40-60) Cholesterol/HDL Ratio 2.9 Medications Current Medications Sodium Chloride 1,000 ml @ 100 mls/hr Q10H IV Last administered on 12/12/19at 22:32; Start 12/12/19 at 20:39; Stop 12/13/19 at 00:38; Status DC Morphine Sulfate (Morphine Sulfate) 2 mg PRN Q2HR PRN IV PAIN Last administered on 12/13/19at 16:18; Start 12/12/19 at 21:15; Stop 12/13/19 at 21:14; Status DC Morphine Sulfate (Morphine Sulfate) 2 mg STK-MED ONCE .ROUTE ; Start 12/12/19 at 21:09; Stop 12/12/19 at 21:10; Status DC Ondansetron HCl (Zofran) 4 mg PRN Q4HRS PRN IV NAUSEA/VOMITING; Start 12/12/19 at 21:45 Acetaminophen (Tylenol) 650 mg PRN Q4HRS PRN PO TEMP OVER 100.4F OR MILD PAIN Last administered on 12/13/19 08:38; Start 12/12/19 at 21:45 Al Hydroxide/Mg Hydroxide (Mylanta Plus Xs) 30 ml PRN DAILY PRN PO HEARTBURN / GAS; Start 12/12/19 at 21:45 Docusate Sodium (Colace) 100 mg PRN BID PRN PO HARD STOOLS; Start 12/12/19 at 21:45 Guaifenesin (Robitussin) 200 mg PRN Q4HRS PRN PO COUGH Last administered on 12/13/19 08:39; Start 12/12/19 at 21:45 Enoxaparin Sodium (Lovenox 30mg Syringe) 30 mg Q24H SQ Last administered on 12/12/19at 22:31; Start 12/12/19 at 22:00; Stop 12/13/19 at 16:55; Status DC Gabapentin (Neurontin) 400 mg TID PO Last administered on 12/14/19 08:28; Start 12/12/19 at 21:45 Levothyroxine Sodium (Synthroid) 150 mcg DAILY06 PO Last administered on 12/14/19 06:04; Start 12/13/19 at 06:00 Pantoprazole Sodium (Protonix) 40 mg DAILYAC PO Last administered on 12/14/19 08:28; Start 12/13/19 at 07:30 Trazodone HCl (Desyrel) 50 mg QHS PO Last administered on 12/13/19 21:25; Start 12/12/19 at 21:45 Citalopram Hydrobromide (CeleXA) 40 mg DAILY PO Last administered on 12/14/19 08:29; Start 12/13/19 at 09:00 Atorvastatin Calcium (Lipitor) 10 mg QHS PO Last administered on 12/13/19at 21:26; Start 12/13/19 at 21:00 Acetaminophen/ Hydrocodone Bitart (Lortab 5/325) 1 tab PRN Q4HRS PRN PO moderate pain; Start 12/13/19 at 12:15; Stop 12/13/19 at 12:25; Status DC Sodium Chloride (Normal Saline Flush) 3 ml QSHIFT PRN IV AFTER MEDS AND BLOOD DRAWS; Start 12/13/19 at 12:30 Ondansetron HCl (Zofran) 4 mg PRN Q4HRS PRN IV NAUSEA/VOMITING; Start 12/13/19 at 12:30; Stop 12/13/19 at 13:02; Status DC Acetaminophen (Tylenol) 650 mg PRN Q4HRS PRN PO TEMP OVER 100.4F OR MILD PAIN; Start 12/13/19 at 12:30; Stop 12/13/19 at 13:02; Status DC Al Hydroxide/Mg Hydroxide (Mylanta Plus Xs) 30 ml PRN DAILY PRN PO HEARTBURN / GAS; Start 12/13/19 at 12:30; Stop 12/13/19 at 13:02; Status DC Docusate Sodium (Colace) 100 mg PRN BID PRN PO HARD STOOLS; Start 12/13/19 at 12:30; Stop 12/13/19 at 13:02; Status DC Albuterol Sulfate (Ventolin Neb Soln) 2.5 mg PRN Q4HRS PRN NEB SHORTNESS OF BREATH; Start 12/13/19 at 12:30 Guaifenesin (Robitussin) 200 mg PRN Q4HRS PRN PO COUGH; Start 12/13/19 at 12:30; Stop 12/13/19 at 13:02; Status DC Lorazepam (Ativan) 0.5 mg PRN Q4HRS PRN PO ANXIETY / AGITATION; Start 12/13/19 at 12:30 Enoxaparin Sodium (Lovenox 40mg Syringe) 40 mg Q24H SQ Last administered on 12/13/19at 21:26; Start 12/13/19 at 21:00 Naproxen (Naprosyn) 250 mg PRN BID PRN PO SEVERE PAIN 7-10 Last administered on 12/13/19at 13:55; Start 12/13/19 at 12:30 Acetaminophen/ Hydrocodone Bitart (Lortab 5/325) 1 tab PRN Q4HRS PRN PO PAIN Last administered on 12/14/19at 03:27; Start 12/13/19 at 13:00 Active Scripts Active Reported Synthroid (Levothyroxine Sodium) 150 Mcg Tablet 150 Mcg PO DAILY06 90 Days On empty stomach without food or other meds Escitalopram Oxalate 20 Mg Tablet 20 Mg PO DAILY 90 Days Trazodone Hcl 50 Mg Tablet 50 Mg PO QHS 90 Days Pantoprazole Sodium 40 Mg Tablet.dr 40 Mg PO DAILY 90 Days Vitals/I & O Vital Sign - Last 24 Hours 12/13/19 12/13/19 12/13/19 12/13/19 10:50 15:00 19:06 20:23 Temp 98.6 97.4 98.4 98.6 97.4 98.4 Pulse 79 79 82 Resp 26 26 18 B/P (MAP) 107/57 (74) 124/59 (80) 113/53 (73) Pulse Ox 99 95 96 O2 Delivery Nasal Cannula Nasal Cannula Nasal Cannula Nasal Cannula O2 Flow Rate 3.0 3.0 2.0 2.0 12/13/19 12/13/19 12/13/19 12/14/19 20:45 21:15 22:55 03:22 Temp 98.4 98.9 98.4 98.9 Pulse 73 76 Resp 18 18 B/P (MAP) 106/58 (74) 131/60 (83) Pulse Ox 95 93 96 O2 Delivery Nasal Cannula Nasal Cannula Nasal Cannula Nasal Cannula O2 Flow Rate 2.0 2.0 2.0 2.0 12/14/19 12/14/19 12/14/19 12/14/19 03:27 04:27 07:19 08:00 Temp 98.2 98.2 Pulse 78 Resp 18 B/P (MAP) 129/65 (86) Pulse Ox 97 O2 Delivery Nasal Cannula Nasal Cannula Nasal Cannula Nasal Cannula O2 Flow Rate 2.0 2.0 Intake and Output 12/13/19 12/13/19 12/14/19 15:00 23:00 07:00 Intake Total 50 ml 300 ml Balance 50 ml 300 ml Justicifation of Admission Dx: Justifications for Admission: Justification of Admission Dx: Yes Angina: Symp at Rest EVELYNE HERNÁNDEZ MD Dec 14, 2019 09:41
[2019-12-14 10:56] VITALS: BP 121/59
--- NOTE | 2019-12-14 14:47 | RAD ---
Examination: Nuclear medicine perfusion scan. Clinical History: Chest pain . Technique: . 5.4 mCi of Tc 99m MAA was administered intravenously and spot views were obtained on the gamma camera for a Nuclear Medicine perfusion examination. Findings: No evidence of segmental perfusion defects identified however small nonsegmental perfusion defects identified in the bilateral lungs. IMPRESSION: Intermediate probability for pulmonary embolism. Consider ultrasound bilateral lower extremity venous duplex or CT angiogram if clinically feasible. Electronically signed by: Dell White MD (12/14/2019 2:44 PM) [id number]
[2019-12-14 15:35] VITALS: BP 140/63
[2019-12-14] MEDS ORDERED: HEPARIN for IV BOLUS 10,000 UNIT/10 ML VIAL. IV PRN ×2 (16:00)
[2019-12-14] MEDS: HEPARIN 25,000UTS/250ML PREMIX 250 ML IV PRN (16:46)
--- NOTE | 2019-12-14 17:19 | RAD ---
Exam: CT of chest without contrast INDICATION: Chest pain, indeterminate VQ scan TECHNIQUE: Sequential axial images through the chest obtained without IV contrast. Sagittal and coronal reformatted images were reconstructed from the axial data and reviewed. Comparisons: VQ scan same day FINDINGS: Visualized portions of the thyroid are unremarkable. No enlarged mediastinal lymph nodes. Heart size is normal. No pericardial effusion. Thoracic aorta has a normal course and caliber. Pulmonary artery is not enlarged. Airways are patent. Strandy opacities at the left upper lobe series 2 image 17 through 21. 3 mm nodule in the right upper lobe image 17. 5 mm nodule left lower lobe series 2 image 32. No pleural effusion or thickening. Visualized upper abdomen is unremarkable. No suspicious osseous lesions or acute fractures. IMPRESSION: 1. Strandy opacities at the left upper lobe represent atelectasis or baby infectious or inflammatory in etiology. 2. Several pulmonary nodules, largest measuring 5 mm. In a low-risk patient no further follow-up imaging is recommended. In a high-risk patient optional one-year follow-up CT can BE performed. Exposure: One or more of the following in the visualized dose reduction techniques were utilized for this examination: 1. Automated exposure control 2. Adjustment of the MA and/or KV according to patient size 3. Use of iterative of reconstructive technique Electronically signed by: Johnny Solis MD (12/14/2019 5:16 PM) [id number]
--- NOTE | 2019-12-14 18:31 | RAD ---
Exam: Bilateral lower extremity venous duplex study INDICATION: Leg swelling TECHNIQUE: Using a combination of real-time ultrasound imaging and color-flow and pulse Doppler imaging techniques along with graded compression and augmentation, duplex evaluation of the deep venous systems of bilateral lower extremity was performed. Multiple images were obtained. Findings: There is no sonographic evidence for deep venous thrombosis involving the visualized deep venous structures of the bilateral lower extremity. IMPRESSION: No acute DVT in the bilateral lower extremities. Electronically signed by: Johnny Solis MD (12/14/2019 6:28 PM) [id number]
[2019-12-14 19:00] VITALS: BP 128/77
[2019-12-14] MEDS: ATORVASTATIN CALCIUM 10 MG TABLET. PO SCH (21:11)
[2019-12-14] MEDS: traZODone 50 MG TABLET. PO SCH (21:11)
[2019-12-14 23:04] VITALS: BP 118/61
[2019-12-15 03:18] VITALS: BP 160/65
[2019-12-15] MEDS: LEVOTHYROXINE 150 MCG TABLET PO SCH (06:14)
[2019-12-15 07:00] VITALS: BP 144/80
--- NOTE | 2019-12-15 07:54 | PDOC ---
PROGRESS NOTES History of Present Illness History of Present Illness VTE Prophylaxis Ordered VTE Prophylaxis Devices: Yes VTE Pharmacological Prophylaxi: Yes DISCHARGE DX Assessment/Plan impression chest pain HOCM and PFO: S/P open septal myomectomy, MV repair and PFO closure in 05/2012 mild to moderate tricuspid regurgitation with an estimated PAP of 42 mmHg. Hyperlipidemia COPD with chronic cough right shoulder pain ON X RAY, 12/12 No acute osseous abnormality. Moderate AC joint degenerative changes. tobacco abuse disorder hypoxia on room air , NOW O2 DEPENDENT WITH EXERCISE AT 1 LITER NC ACUTE PULMONARY EMBOLUS V/Q POS 12/13 BUT CTA CHEST NORMAL admit cvc bed x-ray r shoulder, may need MRI Cardiology consult serial troponin i x ray right shoulder HEPARIN DRIP PROTOCOL PULM CONSULT D-DIMER Ischemic work-up could be considered as an outpatient O2 1 LITER NC WITH ACTIVITY SEE DR MORGAN IN 3 MONTHS, NO SMOKING D/C PLANNING 36 MIN D/W DR [place] 12/12 D/W RN D/W DR MORGAN, PLANNING CTA CHEST today 28 min pt exam, chart review, > 50% of time spent with exam, chart review, pt care coordination Justicifation of Admission Dx: Justicifation of Admission Dx: Justifications for Admission: Justification of Admission Dx: Yes Angina: Symp at Rest Vitals Vitals Vital Signs Date Time Temp Pulse Resp B/P (MAP) Pulse Ox O2 Delivery O2 Flow Rate FiO2 12/15/19 07:00 95.5 78 20 144/80 (101) 96 Nasal Cannula 2.0 95.5 Physical Exam General: Alert, Oriented X3, Cooperative, No acute distress Heart: Regular rate (SR), Normal S1, Normal S2, Other (3/6 systolic murmur to LLS border) Abdomen: Normal bowel sounds, Soft, No tenderness Extremities: No cyanosis, No edema Skin: No breakdown, No significant lesion Labs LABS EXAM: CT Pulmonary Angiogram INDICATION: Reason: CP / Spl. Instructions: OMNI 350 INJ 90 MLS / History: TECHNIQUE: Multi-detector row images were acquired from the thoracic inlet through the upper abdomen with the use of IV contrast. Sagittal and coronal images were acquired from the transaxial data. MIP images of the pulmonary arteries were obtained. All CT scans performed at this facility utilize dose optimization techniques as appropriate to the exam, including the following: Automated exposure control and adjustment of the mA and/or KV according to patient size (this includes techniques or standardized protocols for targeted exams where dose is indication/reason for exam). IV CONTRAST: Administered COMPARISON: None FINDINGS: PULMONARY ARTERIES: No pulmonary emboli are identified. CARDIOVASCULAR: Unremarkable Aorta is normal caliber. MEDIASTINUM & SARAH: Small hiatal hernia. LUNGS: Patchy groundglass attenuation in the posterior left upper lobe, compatible with pneumonitis. Subsegmental atelectasis in the lingula. A 7 mm left lower lobe pulmonary nodule (image 74 series 3) is also present. Otherwise no pulmonary infiltrate, nodule, or other focal abnormality. PLEURAL SPACE: No pleural effusions or pneumothorax. OSSEOUS & SOFT TISSUE: Spinal stimulator electrodes in the lower thoracic spine. Previous median sternotomy. ABDOMEN: The visualized portions of the upper abdomen show cholecystectomy.. IMPRESSION: 1. No pulmonary emboli. 2. Minimal pneumonitis in the posterior left upper lobe. 3. A 7 mm left lower lobe pulmonary nodule is recommended per Fleischner Society guidelines for follow-up in 6-12 months if patient is at low risk for lung cancer, after which (assuming stability) a follow-up at 18-24 months could be considered. If the patient is at high risk for lung cancer, then that second follow-up examination should be completed in addition to the initial 6-12 month follow-up study. Electronically signed by: Stas Schafer MD (12/15/2019 12:21 PM) [facility] [place] DICTATED and SIGNED BY: STAS SCHAFER MD DATE: 12/15/19 1221 Laboratory Tests Test 12/14/19 13:13 12/14/19 22:30 12/15/19 05:55 D-Dimer (Niru) 0.65 ug/mlFEU (0.00-0.50) Heparin Anti-Xa Act, Unfractionated 0.22 IU/mL (0.30-0.70) 0.19 IU/mL (0.30-0.70) Assessment and Plan Assessmemt and Plan Problems Medical Problems: (1) Chest pain Status: Acute Comment Review of Relevant I have reviewed the following items prasanna (where applicable) has been applied. Labs Laboratory Tests Test 12/14/19 13:13 12/14/19 22:30 12/15/19 05:55 D-Dimer (Niru) 0.65 ug/mlFEU (0.00-0.50) Heparin Anti-Xa Act, Unfractionated 0.22 IU/mL (0.30-0.70) 0.19 IU/mL (0.30-0.70) Laboratory Tests Test 12/14/19 13:13 12/14/19 22:30 12/15/19 05:55 D-Dimer (Niru) 0.65 ug/mlFEU (0.00-0.50) Heparin Anti-Xa Act, Unfractionated 0.22 IU/mL (0.30-0.70) 0.19 IU/mL (0.30-0.70) Medications Current Medications Sodium Chloride 1,000 ml @ 100 mls/hr Q10H IV Last administered on 12/12/19at 22:32; Start 12/12/19 at 20:39; Stop 12/13/19 at 00:38; Status DC Morphine Sulfate (Morphine Sulfate) 2 mg PRN Q2HR PRN IV PAIN Last administered on 12/13/19at 16:18; Start 12/12/19 at 21:15; Stop 12/13/19 at 21:14; Status DC Morphine Sulfate (Morphine Sulfate) 2 mg STK-MED ONCE .ROUTE ; Start 12/12/19 at 21:09; Stop 12/12/19 at 21:10; Status DC Ondansetron HCl (Zofran) 4 mg PRN Q4HRS PRN IV NAUSEA/VOMITING; Start 12/12/19 at 21:45 Acetaminophen (Tylenol) 650 mg PRN Q4HRS PRN PO TEMP OVER 100.4F OR MILD PAIN Last administered on 12/13/19at 08:38; Start 12/12/19 at 21:45 Al Hydroxide/Mg Hydroxide (Mylanta Plus Xs) 30 ml PRN DAILY PRN PO HEARTBURN / GAS; Start 12/12/19 at 21:45 Docusate Sodium (Colace) 100 mg PRN BID PRN PO HARD STOOLS; Start 12/12/19 at 21:45 Guaifenesin (Robitussin) 200 mg PRN Q4HRS PRN PO COUGH Last administered on 12/13/19 08:39; Start 12/12/19 at 21:45 Enoxaparin Sodium (Lovenox 30mg Syringe) 30 mg Q24H SQ Last administered on 12/12/19at 22:31; Start 12/12/19 at 22:00; Stop 12/13/19 at 16:55; Status DC Gabapentin (Neurontin) 400 mg TID PO Last administered on 12/14/19at 21:11; Start 12/12/19 at 21:45 Levothyroxine Sodium (Synthroid) 150 mcg DAILY06 PO Last administered on 12/15/19 06:14; Start 12/13/19 at 06:00 Pantoprazole Sodium (Protonix) 40 mg DAILYAC PO Last administered on 12/14/19 08:28; Start 12/13/19 at 07:30 Trazodone HCl (Desyrel) 50 mg QHS PO Last administered on 12/14/19at 21:11; Start 12/12/19 at 21:45 Citalopram Hydrobromide (CeleXA) 40 mg DAILY PO Last administered on 12/14/19at 08:29; Start 12/13/19 at 09:00 Atorvastatin Calcium (Lipitor) 10 mg QHS PO Last administered on 12/14/19 21:11; Start 12/13/19 at 21:00 Acetaminophen/ Hydrocodone Bitart (Lortab 5/325) 1 tab PRN Q4HRS PRN PO moderate pain; Start 12/13/19 at 12:15; Stop 12/13/19 at 12:25; Status DC Sodium Chloride (Normal Saline Flush) 3 ml QSHIFT PRN IV AFTER MEDS AND BLOOD DRAWS; Start 12/13/19 at 12:30 Ondansetron HCl (Zofran) 4 mg PRN Q4HRS PRN IV NAUSEA/VOMITING; Start 12/13/19 at 12:30; Stop 12/13/19 at 13:02; Status DC Acetaminophen (Tylenol) 650 mg PRN Q4HRS PRN PO TEMP OVER 100.4F OR MILD PAIN; Start 12/13/19 at 12:30; Stop 12/13/19 at 13:02; Status DC Al Hydroxide/Mg Hydroxide (Mylanta Plus Xs) 30 ml PRN DAILY PRN PO HEARTBURN / GAS; Start 12/13/19 at 12:30; Stop 12/13/19 at 13:02; Status DC Docusate Sodium (Colace) 100 mg PRN BID PRN PO HARD STOOLS; Start 12/13/19 at 12:30; Stop 12/13/19 at 13:02; Status DC Albuterol Sulfate (Ventolin Neb Soln) 2.5 mg PRN Q4HRS PRN NEB SHORTNESS OF BREATH; Start 12/13/19 at 12:30 Guaifenesin (Robitussin) 200 mg PRN Q4HRS PRN PO COUGH; Start 12/13/19 at 12:30; Stop 12/13/19 at 13:02; Status DC Lorazepam (Ativan) 0.5 mg PRN Q4HRS PRN PO ANXIETY / AGITATION; Start 12/13/19 at 12:30 Enoxaparin Sodium (Lovenox 40mg Syringe) 40 mg Q24H SQ Last administered on 12/13/19at 21:26; Start 12/13/19 at 21:00; Stop 12/14/19 at 21:06; Status DC Naproxen (Naprosyn) 250 mg PRN BID PRN PO SEVERE PAIN 7-10 Last administered on 12/13/19at 13:55; Start 12/13/19 at 12:30 Acetaminophen/ Hydrocodone Bitart (Lortab 5/325) 1 tab PRN Q4HRS PRN PO PAIN Last administered on 12/14/19at 21:12; Start 12/13/19 at 13:00 Heparin Sodium/ Dextrose 250 ml @ 0 mls/hr CONT PRN IV PER PROTOCOL Last administered on 12/14/19at 16:46; Start 12/14/19 at 16:00 Heparin Sodium (Porcine) (Heparin Sodium) 2,200 unit PRN Q6HRS PRN IV FOR UFH LEVEL LESS THAN 0.2; Start 12/14/19 at 16:00 Heparin Sodium (Porcine) (Heparin Sodium) 1,100 unit PRN Q6HRS PRN IV FOR UFH LEVEL 0.2 - 0.29 Last administered on 12/14/19at 23:33; Start 12/14/19 at 16:00 Active Scripts Active Reported Synthroid (Levothyroxine Sodium) 150 Mcg Tablet 150 Mcg PO DAILY06 90 Days On empty stomach without food or other meds Escitalopram Oxalate 20 Mg Tablet 20 Mg PO DAILY 90 Days Trazodone Hcl 50 Mg Tablet 50 Mg PO QHS 90 Days Pantoprazole Sodium 40 Mg Tablet.dr 40 Mg PO DAILY 90 Days Vitals/I & O Vital Sign - Last 24 Hours 12/14/19 12/14/19 12/14/19 12/14/19 08:00 10:56 15:35 19:00 Temp 98.9 98.9 98.2 98.9 98.9 98.2 Pulse 70 72 82 Resp 18 18 20 B/P (MAP) 121/59 (79) 140/63 (88) 128/77 (94) Pulse Ox 91 90 95 O2 Delivery Nasal Cannula Nasal Cannula Room Air Nasal Cannula O2 Flow Rate 2.0 2.0 2.0 12/14/19 12/14/19 12/15/19 12/15/19 20:17 23:04 03:18 07:00 Temp 98.4 97.9 95.5 98.4 97.9 95.5 Pulse 72 88 78 Resp 20 20 20 B/P (MAP) 118/61 (80) 160/65 (96) 144/80 (101) Pulse Ox 94 98 96 O2 Delivery Nasal Cannula Nasal Cannula Nasal Cannula Nasal Cannula O2 Flow Rate 2.0 2.0 2.0 2.0 Intake and Output 12/14/19 12/14/19 12/15/19 15:00 23:00 07:00 Intake Total 50 ml 50 ml Balance 50 ml 50 ml Justicifation of Admission Dx: Justifications for Admission: Justification of Admission Dx: Yes Angina: Symp at Rest EVELYNE HERNÁNDEZ MD Dec 15, 2019 07:54
[2019-12-15] MEDS: PANTOPRAZOLE 40 MG TABLET.DR. PO SCH (08:50)
[2019-12-15] MEDS: GABAPENTIN 400 MG CAPSULE. PO SCH (08:50)
[2019-12-15] MEDS: CITALOPRAM 20 MG TABLET. PO SCH (08:51)
[2019-12-15 10:16] LABS: CALCIUM 8.5 mg/dL (8.5-10.1); CREATININE 0.9 mg/dL (0.6-1.0); GFR 61.5; POTASSIUM 4.1 mmol/L (3.5-5.1)
[2019-12-15 11:00] VITALS: BP 143/72
--- NOTE | 2019-12-15 11:12 | CONS ---
DATE OF CONSULTATION: 12/15/2019 PULMONARY CONSULTATION ATTENDING PHYSICIAN: Sy Siegel MD REASON FOR CONSULTATION: Hypoxia, abnormal perfusion scan. HISTORY OF PRESENT ILLNESS: The patient is a 74-year-old patient who has been a smoker since age 19 and continues to smoke half pack a day. She was brought into the hospital complained of right sided shoulder pain, pain in the upper back area and some nonspecific pain in the right chest wall area. She had no significant shortness of breath. No nausea. No palpitations. She has a mild chronic cough, which she attributes to smoker's cough. No history of deep vein thrombosis or pulmonary embolism. No significant cardiac history. Her oxygen saturations were in the high 80s. As a result, she was placed on 2 liters of oxygen. She had a chest x-ray, which did not reveal any acute infiltrates. Perfusion scan was ordered by primary care physician, in fact no ventilation scan was performed. There was no evidence of any segmental perfusion defects. The radiologist reported small nonsegmental defect in the lungs. The patient was started on empiric heparin. Venous Dopplers were performed and there was no evidence of DVT. I have been asked to see her for further evaluation. PAST MEDICAL HISTORY: Significant for CAD, history of hyperlipidemia, valvular insufficiency, history of HOCM, Takotsubo cardiomyopathy and remote apical mural thrombus, COPD, history of osteoarthritis, allergic rhinitis. PAST SURGICAL HISTORY: Cholecystectomy, cataract removal, septal myomectomy with PFO closure and mitral valve repair. FAMILY HISTORY: Coronary artery disease. SOCIAL HISTORY: Still smokes, 1 pack would last for 2 days, has been smoking since age 19. MEDICATIONS: Reviewed as listed in the [facility] including albuterol nebs and heparin protocol. REVIEW OF SYSTEMS: Twelve-point system obtained. Pertinent positives discussed in my history of present illness, otherwise noncontributory. All systems that were negative, were reviewed as well. PHYSICAL EXAMINATION: VITAL SIGNS: Reviewed. Pulse ox 96% on 2 liters, afebrile. NECK: Supple. LUNGS: Diminished breath sounds. CARDIOVASCULAR: With a regular rate. ABDOMEN: Soft. EXTREMITIES: With no pitting edema. LABORATORY DATA: Reviewed. White cell count 10.1, hemoglobin 11.2 and platelets are 269. BUN is 11 and a creatinine of 0.9. Creatinine was 1.3 yesterday. IMPRESSION: 1. Mild hypoxia, likely secondary to chronic obstructive pulmonary disease and clinically less likely thromboembolic disease. 2. Abnormal perfusion scan with only subsegmental defects in the lungs, likely related to underlying chronic obstructive pulmonary disease. There is no evidence of segmental perfusion defects. Without a ventilation scan, this test is nonconclusive and clinically less likely thromboembolic disease. CTA chest was not done due to mildly increased creatinine yesterday. 3. No evidence of deep venous thrombosis. 4. D-dimer 0.6. 5. Tiny lung nodules on ct chest/ likely non calcified granuloma. RECOMMENDATIONS: 1. From a pulmonary standpoint, she is doing well. I will need a 6-minute walk test to assess the need for oxygen, and her hypoxia is likely related to chronic obstructive pulmonary disease. 2. Since her creatinine is better, we can do CTA chest and if there is no evidence of PE, then she could be discontinued on heparin drip and could be discharged home. 3. Tiny lung nodules were seen on a noncontrast CT chest. Largest being 5 mm. This is nonspecific and likely granulomas. I would recommend repeating a CT chest in 6-8 months and I have given my office contact number for her followup appointment. 4. Smoking cessation counseling provided. 5. Continue bronchodilators. 6. PFTs as an outpatient. 7. Discussed with Dr. Burgos and likely discharged home after CTA chest is done. SULTANA MORGAN MD DR: CATHIE/chavez JOB#: [id number] / [id number] ROXY
[2019-12-15] MEDS ORDERED: IOHEXOL 350 MG/ML 100 ML VIAL. IV ONE (11:15)
[2019-12-15] MEDS ORDERED: IV NORMAL SALINE 500ML BAG 500 ML IV ONE (11:15)
--- NOTE | 2019-12-15 12:23 | RAD ---
EXAM: CT Pulmonary Angiogram INDICATION: Reason: CP / Spl. Instructions: OMNI 350 INJ 90 MLS / History: TECHNIQUE: Multi-detector row images were acquired from the thoracic inlet through the upper abdomen with the use of IV contrast. Sagittal and coronal images were acquired from the transaxial data. MIP images of the pulmonary arteries were obtained. All CT scans performed at this facility utilize dose optimization techniques as appropriate to the exam, including the following: Automated exposure control and adjustment of the mA and/or KV according to patient size (this includes techniques or standardized protocols for targeted exams where dose is indication/reason for exam). IV CONTRAST: Administered COMPARISON: None FINDINGS: PULMONARY ARTERIES: No pulmonary emboli are identified. CARDIOVASCULAR: Unremarkable Aorta is normal caliber. MEDIASTINUM & SARAH: Small hiatal hernia. LUNGS: Patchy groundglass attenuation in the posterior left upper lobe, compatible with pneumonitis. Subsegmental atelectasis in the lingula. A 7 mm left lower lobe pulmonary nodule (image 74 series 3) is also present. Otherwise no pulmonary infiltrate, nodule, or other focal abnormality. PLEURAL SPACE: No pleural effusions or pneumothorax. OSSEOUS & SOFT TISSUE: Spinal stimulator electrodes in the lower thoracic spine. Previous median sternotomy. ABDOMEN: The visualized portions of the upper abdomen show cholecystectomy.. IMPRESSION: 1. No pulmonary emboli. 2. Minimal pneumonitis in the posterior left upper lobe. 3. A 7 mm left lower lobe pulmonary nodule is recommended per Fleischner Society guidelines for follow-up in 6-12 months if patient is at low risk for lung cancer, after which (assuming stability) a follow-up at 18-24 months could be considered. If the patient is at high risk for lung cancer, then that second follow-up examination should be completed in addition to the initial 6-12 month follow-up study. Electronically signed by: Nahomy Schafer MD (12/15/2019 12:21 PM) [facility] – [place]
[2019-12-15] MEDS: HEPARIN 25,000UTS/250ML PREMIX 250 ML IV PRN (12:29)
[2019-12-15] MEDS ORDERED: ANTI-COAG MONITOR BY PHARMACY. MC PRN (13:45)
--- NOTE | 2019-12-15 15:00 | NUR ---
Discharge Note: Late entry KAI NGUYEN Discharge instructions and discharge home medications reviewed with Patient and a copy given. All questions have been answered and understanding verbalized. The following instructions and handouts were given: smoking cessation, stress test, and chest wall pain. Discontinued iv line and catheter intact. Patient discharged to home with self-care and oxygen 1L with exertion via private vehicle.
--- NOTE | 2019-12-15 17:09 | PDOC3 ---
Discharge Summary Date of Admission: Dec 12, 2019 Date of Discharge: Dec 15, 2019 Follow-Up: 3-5 days Admitting Diagnosis comment: DISCHARGE DX Assessment/Plan impression chest pain HOCM and PFO: S/P open septal myomectomy, MV repair and PFO closure in 05/2012 mild to moderate tricuspid regurgitation with an estimated PAP of 42 mmHg. Hyperlipidemia COPD with chronic cough, NOW O2 DEPENDENT right shoulder pain ON X RAY, 12/12 No acute osseous abnormality. Moderate AC joint degenerative changes. tobacco abuse disorder hypoxia on room air , NOW O2 DEPENDENT WITH EXERCISE AT 1 LITER NC ACUTE PULMONARY EMBOLUS V/Q POS 12/13 BUT CTA CHEST NORMAL admit cvc bed x-ray r shoulder, may need MRI Cardiology consult serial troponin i x ray right shoulder HEPARIN DRIP PROTOCOL PULM CONSULT D-DIMER Ischemic work-up could be considered as an outpatient O2 1 LITER NC WITH ACTIVITY SEE DR MORGAN IN 3 MONTHS, NO SMOKING D/C PLANNING 36 MIN D/W DR [place] 12/12 D/W RN D/W DR MORGAN, PLANNING CTA CHEST today OK SEE CARDIOLOGY SOON DIRECTED FOR STRESS TESTING 36 min pt exam, chart review D/C PLANNING , , > 50% of time spent with exam, chart review, pt care coordination Justicifation of Admission Dx: Justicifation of Admission Dx: Justifications for Admission: Justification of Admission Dx: Yes Angina: Symp at Rest Vitals Vitals Vital Signs Date Time Temp Pulse Resp B/P (MAP) Pulse Ox O2 Delivery O2 Flow Rate FiO2 12/15/19 07:00 95.5 78 20 144/80 (101) 96 Nasal Cannula 2.0 95.5 Physical Exam General: Alert, Oriented X3, Cooperative, No acute distress Heart: Regular rate (SR), Normal S1, Normal S2, Other (3/6 systolic murmur to LLS border) Abdomen: Normal bowel sounds, Soft, No tenderness Extremities: No cyanosis, No edema Skin: No breakdown, No significant lesion Labs LABS EXAM: CT Pulmonary Angiogram INDICATION: Reason: CP / Spl. Instructions: OMNI 350 INJ 90 MLS / History: TECHNIQUE: Multi-detector row images were acquired from the thoracic inlet through the upper abdomen with the use of IV contrast. Sagittal and coronal images were acquired from the transaxial data. MIP images of the pulmonary arteries were obtained. All CT scans performed at this facility utilize dose optimization techniques as appropriate to the exam, including the following: Automated exposure control and adjustment of the mA and/or KV according to patient size (this includes techniques or standardized protocols for targeted exams where dose is indication/reason for exam). IV CONTRAST: Administered COMPARISON: None FINDINGS: PULMONARY ARTERIES: No pulmonary emboli are identified. CARDIOVASCULAR: Unremarkable Aorta is normal caliber. MEDIASTINUM & SARAH: Small hiatal hernia. LUNGS: Patchy groundglass attenuation in the posterior left upper lobe, compatible with pneumonitis. Subsegmental atelectasis in the lingula. A 7 mm left lower lobe pulmonary nodule (image 74 series 3) is also present. Otherwise no pulmonary infiltrate, nodule, or other focal abnormality. PLEURAL SPACE: No pleural effusions or pneumothorax. OSSEOUS & SOFT TISSUE: Spinal stimulator electrodes in the lower thoracic spine. Previous median sternotomy. ABDOMEN: The visualized portions of the upper abdomen show cholecystectomy.. IMPRESSION: 1. No pulmonary emboli. 2. Minimal pneumonitis in the posterior left upper lobe. 3. A 7 mm left lower lobe pulmonary nodule is recommended per Fleischner Society guidelines for follow-up in 6-12 months if patient is at low risk for lung cancer, after which (assuming stability) a follow-up at 18-24 months could be considered. If the patient is at high risk for lung cancer, then that second follow-up examination should be completed in addition to the initial 6-12 month follow-up study. Electronically signed by: Stas Schafer MD (12/15/2019 12:21 PM) [facility] [place] DICTATED and SIGNED BY: STAS SCHAFER MD DATE: 12/15/19 1221 Laboratory Tests Test 12/14/19 13:13 12/14/19 22:30 12/15/19 05:55 D-Dimer (Niru) 0.65 ug/mlFEU (0.00-0.50) Heparin Anti-Xa Act, Unfractionated 0.22 IU/mL (0.30-0.70) 0.19 IU/mL (0.30-0.70) Assessment and Plan Assessmemt and Plan Problems Medical Problems: (1) Chest pain Status: Acute FINAL DIAGNOSIS Problems Medical Problems: (1) Chest pain Status: Acute Brief Hospital Course Ms. Ritchie is a 74 old [sex] who presented with [ CHEST PAIN] CONDITION AT DISCHARGE: Improved Discharge Medications Current Medications Sodium Chloride 1,000 ml @ 100 mls/hr Q10H IV Last administered on 12/12/19at 22:32; Start 12/12/19 at 20:39; Stop 12/13/19 at 00:38; Status DC Morphine Sulfate (Morphine Sulfate) 2 mg PRN Q2HR PRN IV PAIN Last administered on 12/13/19at 16:18; Start 12/12/19 at 21:15; Stop 12/13/19 at 21:14; Status DC Morphine Sulfate (Morphine Sulfate) 2 mg STK-MED ONCE .ROUTE ; Start 12/12/19 at 21:09; Stop 12/12/19 at 21:10; Status DC Ondansetron HCl (Zofran) 4 mg PRN Q4HRS PRN IV NAUSEA/VOMITING; Start 12/12/19 at 21:45; Stop 12/15/19 at 15:39; Status DC Acetaminophen (Tylenol) 650 mg PRN Q4HRS PRN PO TEMP OVER 100.4F OR MILD PAIN Last administered on 12/13/19at 08:38; Start 12/12/19 at 21:45; Stop 12/15/19 at 15:39; Status DC Al Hydroxide/Mg Hydroxide (Mylanta Plus Xs) 30 ml PRN DAILY PRN PO HEARTBURN / GAS; Start 12/12/19 at 21:45; Stop 12/15/19 at 15:39; Status DC Docusate Sodium (Colace) 100 mg PRN BID PRN PO HARD STOOLS; Start 12/12/19 at 21:45; Stop 12/15/19 at 15:39; Status DC Guaifenesin (Robitussin) 200 mg PRN Q4HRS PRN PO COUGH Last administered on 12/13/19at 08:39; Start 12/12/19 at 21:45; Stop 12/15/19 at 15:39; Status DC Enoxaparin Sodium (Lovenox 30mg Syringe) 30 mg Q24H SQ Last administered on 12/12/19at 22:31; Start 12/12/19 at 22:00; Stop 12/13/19 at 16:55; Status DC Gabapentin (Neurontin) 400 mg TID PO Last administered on 12/15/19at 08:50; Start 12/12/19 at 21:45; Stop 12/15/19 at 15:39; Status DC Levothyroxine Sodium (Synthroid) 150 mcg DAILY06 PO Last administered on 12/15/19at 06:14; Start 12/13/19 at 06:00; Stop 12/15/19 at 15:39; Status DC Pantoprazole Sodium (Protonix) 40 mg DAILYAC PO Last administered on 12/15/19at 08:50; Start 12/13/19 at 07:30; Stop 12/15/19 at 15:39; Status DC Trazodone HCl (Desyrel) 50 mg QHS PO Last administered on 12/14/19at 21:11; Start 12/12/19 at 21:45; Stop 12/15/19 at 15:39; Status DC Citalopram Hydrobromide (CeleXA) 40 mg DAILY PO Last administered on 12/15/19at 08:51; Start 12/13/19 at 09:00; Stop 12/15/19 at 15:39; Status DC Atorvastatin Calcium (Lipitor) 10 mg QHS PO Last administered on 12/14/19at 21:11; Start 12/13/19 at 21:00; Stop 12/15/19 at 15:39; Status DC Acetaminophen/ Hydrocodone Bitart (Lortab 5/325) 1 tab PRN Q4HRS PRN PO moderate pain; Start 12/13/19 at 12:15; Stop 12/13/19 at 12:25; Status DC Sodium Chloride (Normal Saline Flush) 3 ml QSHIFT PRN IV AFTER MEDS AND BLOOD DRAWS; Start 12/13/19 at 12:30; Stop 12/15/19 at 15:39; Status DC Ondansetron HCl (Zofran) 4 mg PRN Q4HRS PRN IV NAUSEA/VOMITING; Start 12/13/19 at 12:30; Stop 12/13/19 at 13:02; Status DC Acetaminophen (Tylenol) 650 mg PRN Q4HRS PRN PO TEMP OVER 100.4F OR MILD PAIN; Start 12/13/19 at 12:30; Stop 12/13/19 at 13:02; Status DC Al Hydroxide/Mg Hydroxide (Mylanta Plus Xs) 30 ml PRN DAILY PRN PO HEARTBURN / GAS; Start 12/13/19 at 12:30; Stop 12/13/19 at 13:02; Status DC Docusate Sodium (Colace) 100 mg PRN BID PRN PO HARD STOOLS; Start 12/13/19 at 12:30; Stop 12/13/19 at 13:02; Status DC Albuterol Sulfate (Ventolin Neb Soln) 2.5 mg PRN Q4HRS PRN NEB SHORTNESS OF BREATH; Start 12/13/19 at 12:30; Stop 12/15/19 at 15:39; Status DC Guaifenesin (Robitussin) 200 mg PRN Q4HRS PRN PO COUGH; Start 12/13/19 at 12:30; Stop 12/13/19 at 13:02; Status DC Lorazepam (Ativan) 0.5 mg PRN Q4HRS PRN PO ANXIETY / AGITATION; Start 12/13/19 at 12:30; Stop 12/15/19 at 15:39; Status DC Enoxaparin Sodium (Lovenox 40mg Syringe) 40 mg Q24H SQ Last administered on 12/13/19at 21:26; Start 12/13/19 at 21:00; Stop 12/14/19 at 21:06; Status DC Naproxen (Naprosyn) 250 mg PRN BID PRN PO SEVERE PAIN 7-10 Last administered on 12/13/19at 13:55; Start 12/13/19 at 12:30; Stop 12/15/19 at 15:39; Status DC Acetaminophen/ Hydrocodone Bitart (Lortab 5/325) 1 tab PRN Q4HRS PRN PO PAIN Last administered on 12/14/19at 21:12; Start 12/13/19 at 13:00; Stop 12/15/19 at 15:39; Status DC Heparin Sodium/ Dextrose 250 ml @ 0 mls/hr CONT PRN IV PER PROTOCOL Last administered on 12/15/19at 12:29; Start 12/14/19 at 16:00; Stop 12/15/19 at 15:39; Status DC Heparin Sodium (Porcine) (Heparin Sodium) 2,200 unit PRN Q6HRS PRN IV FOR UFH LEVEL LESS THAN 0.2; Start 12/14/19 at 16:00; Stop 12/15/19 at 15:39; Status DC Heparin Sodium (Porcine) (Heparin Sodium) 1,100 unit PRN Q6HRS PRN IV FOR UFH LEVEL 0.2 - 0.29 Last administered on 12/14/19at 23:33; Start 12/14/19 at 16:00; Stop 12/15/19 at 15:39; Status DC Iohexol (Omnipaque 350 Mg/ml) 90 ml 1X ONCE IV ; Start 12/15/19 at 11:15; Stop 12/15/19 at 11:16; Status DC Sodium Chloride 500 ml @ 500 mls/hr 1X ONCE IV Last administered on 12/15/19at 11:50; Start 12/15/19 at 11:15; Stop 12/15/19 at 12:14; Status DC Info (Anti-Coagulation Monitoring By Pharmacy) 1 each PRN DAILY PRN MC SEE COMMENTS Last administered on 12/15/19at 13:39; Start 12/15/19 at 13:45; Stop 12/15/19 at 15:39; Status DC Active Scripts Active Reported Gabapentin 400 Mg Capsule 400 Mg PO TID 90 Days Synthroid (Levothyroxine Sodium) 150 Mcg Tablet 150 Mcg PO DAILY06 90 Days On empty stomach without food or other meds Escitalopram Oxalate 20 Mg Tablet 20 Mg PO DAILY 90 Days Trazodone Hcl 50 Mg Tablet 50 Mg PO QHS 90 Days Pantoprazole Sodium 40 Mg Tablet.dr 40 Mg PO DAILY 90 Days Vital Signs Vital Signs Date Time Temp Pulse Resp B/P (MAP) Pulse Ox O2 Delivery O2 Flow Rate FiO2 12/15/19 11:00 96.1 75 20 143/72 (95) 98 Nasal Cannula 2.0 96.1 Labs Laboratory Tests Test 12/14/19 13:13 12/14/19 22:30 12/15/19 05:55 D-Dimer (Niru) 0.65 ug/mlFEU (0.00-0.50) Heparin Anti-Xa Act, Unfractionated 0.22 IU/mL (0.30-0.70) 0.19 IU/mL (0.30-0.70) Sodium Level 143 mmol/L (136-145) Potassium Level 4.1 mmol/L (3.5-5.1) Chloride Level 108 mmol/L (98-107) Carbon Dioxide Level 34 mmol/L (21-32) Anion Gap 1 (6-14) Blood Urea Nitrogen 11 mg/dL (7-20) Creatinine 0.9 mg/dL (0.6-1.0) Estimated GFR (Cockcroft-Gault) 61.5 Glucose Level 102 mg/dL (70-99) Calcium Level 8.5 mg/dL (8.5-10.1) Laboratory Tests Test 12/14/19 22:30 12/15/19 05:55 Heparin Anti-Xa Act, Unfractionated 0.22 IU/mL (0.30-0.70) 0.19 IU/mL (0.30-0.70) Sodium Level 143 mmol/L (136-145) Potassium Level 4.1 mmol/L (3.5-5.1) Chloride Level 108 mmol/L (98-107) Carbon Dioxide Level 34 mmol/L (21-32) Anion Gap 1 (6-14) Blood Urea Nitrogen 11 mg/dL (7-20) Creatinine 0.9 mg/dL (0.6-1.0) Estimated GFR (Cockcroft-Gault) 61.5 Glucose Level 102 mg/dL (70-99) Calcium Level 8.5 mg/dL (8.5-10.1) Allergies Allergies Coded Allergies Type Severity Reaction Last Updated Verified codeine Allergy Unknown 12/12/19 Yes Disposition/Orders: D/C to Home Patient Instructions SEE CARDIOLOGY SOON, STRESS TEST, DR MORGAN IN 3 MONTHS, PCP SOON,, NO SMOKING, Justicifation of Admission Dx: Justifications for Admission: Justification of Admission Dx: Yes Angina: Symp at Rest EVELYNE HERNÁNDEZ MD Dec 15, 2019 17:09
--- NOTE | 2019-12-15 17:10 | DISCH ---
DISCHARGE INSTRUCTIONS Condition on Discharge Condition on Discharge: Stable Activity After Discharge Activity Instructions for Disc: Activity as tolerated, Bedrest today Lifting Instructions after Dis: No heavy lifting, No pulling or pushing Driving Instructions after Dis: Do not drive today Weight Bearing Status after Di: As tolerated Diet after Discharge Diet after Discharge: Cardiac, Regular Diet Texture: Regular Liquid Texture: Thin Liquid Checks after Discharge Checks after discharge: Check blood press - daily, Check your Temp as needed, Weigh Yourself Daily Contacting the DRThi after DC Call your doctor for: If your condition worsens Follow-Up [facility]Event [facility] Follow Up With: Primary care doctor Treatment/Equipment after DC Discharge Respiratory Equipmen: Oxygen Warfarin Follow-Up Warfarin Follow UP: NO SMOKING, SEE DR MORGAN 3 MONTHS EVELYNE HERNÁNDEZ MD Dec 15, 2019 17:10
--- NOTE | 2019-12-16 11:08 | EKG ---
[facility] [address] [place] [address] Test Date: 2019-12-12 Test Time: 19:31:04 Pat Name: YOVANI NGUYEN Department: Room: Gender: F Fluxer: : 1945 Requested By: MAIDA MUSA Order Number: [id number] Reading MD: Measurements Intervals [place] Rate: 80 P: 61 GA: 124 QRS: -20 QRSD: 116 T: 119 QT: 384 QTc: 447 Interpretive Statements SINUS RHYTHM LEFTWARD AXIS LVH WITH REPOLARIZATION ABNORMALITY ABNORMAL ECG RI6.02 No previous ECG available for comparison
== END 2019-12-15 15:38 | disposition home or self-care (01) | DRG 206 ==
LOC: ER 19:26 → 2 NORTH 20:53
PROVIDERS: ADMIT Internal Medicine; ATTEND Internal Medicine
DX: M94.0 Chondrocostal junction syndrome [Tietze] (principal); I42.1 Obstructive hypertrophic cardiomyopathy; K21.9 Gastro-esophageal reflux disease without esophagitis; E78.5 Hyperlipidemia, unspecified; E11.22 Type 2 diabetes mellitus with diabetic chronic kidney disease; E89.0 Postprocedural hypothyroidism; F17.210 Nicotine dependence, cigarettes, uncomplicated; I07.1 Rheumatic tricuspid insufficiency; I12.9 Hypertensive chronic kidney disease with stage 1 through stage 4 chronic kidney disease, or unspecified chronic kidney disease; I25.119 Atherosclerotic heart disease of native coronary artery with unspecified angina pectoris; J44.9 Chronic obstructive pulmonary disease, unspecified; N18.2 Chronic kidney disease, stage 2 (mild); R09.02 Hypoxemia; S46.912A Strain of unspecified muscle, fascia and tendon at shoulder and upper arm level, left arm, initial encounter; Z82.49 Family history of ischemic heart disease and other diseases of the circulatory system; Z87.74 Personal history of (corrected) congenital malformations of heart and circulatory system; Z95.1 Presence of aortocoronary bypass graft; Z99.81 Dependence on supplemental oxygen; F32.9 Major depressive disorder, single episode, unspecified; F41.9 Anxiety disorder, unspecified; M19.90 Unspecified osteoarthritis, unspecified site; Z71.6 Tobacco abuse counseling
CPT/HCPCS: 36415; 71045; 71250; 71275; 73030; 78580; 80048; 80061; 80076; 83540; 83550; 83690; 83880; 84484; 85025; 85379; 85520; 85610; 85730; 93005; 93306; 93970; 94618; 99285; A9540; J1644; J1650; J2270; J7030; J7040; G0378